=== PATIENT | female | born 1995 | race Caucasian/White ===

== ENCOUNTER 2016-09-29 22:45 | Emergency (ER) | payer MEDICAID ==
[2016-09-29] MEDS ORDERED: ONDANSETRON 4 MG/2 ML VIAL ONE (23:58)
[2016-09-30] MEDS ORDERED: ONDANSETRON 4 MG/2 ML VIAL IVP STA (00:47)
[2016-09-30] MEDS ORDERED: SODIUM CHLORIDE 0.9% 1,000 ML IV ONE (00:47)
== END 2016-09-30 02:10 | disposition home or self-care (01) ==
DX: K52.9 Noninfective gastroenteritis and colitis, unspecified (principal)

== ENCOUNTER 2017-08-16 13:05 | Emergency (ER) | payer MEDICAID ==
--- NOTE | 2017-08-16 13:50 | ED Physician Documentation ---
History of Present Illness - Stated complaint Stated Complaint: SPOTS IN VISION/19 WKS PREG - Chief complaint Chief Complaint: General - History obtained from History obtained from: Patient, Family - History of Present Illness Timing: How many days ago (2) Pain level max: 10 Pain level now: 5 Improved by: nothing Worsened by: nothing - Additonal information Additional information: R sided frontal headache x2 days. States is 20 weeks . . Took tylenol without relief 2 days ago. didn't take anything for pain. Dr. Mckinnon is her OB at [place]. No dyspnea. No vag bleeding. No abd pain. States has had hypertension with this , not on antihypertensives. 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 : None HEENT: None Psych: Anxiety Musculoskeletal: None Derm: None - Past Surgical History Past Surgical History: Yes HEENT: Tonsil/Adenoidectomy - Present Medications Home Medications: Ambulatory Orders Medication Instructions Recorded Confirmed No Known Home Medications [No 08/16/17 08/16/17 Known Home Medications] - Allergies Allergies/Adverse Reactions: Allergies Allergy/AdvReac Type Severity Reaction Status Date / Time clindamycin Allergy Intermediate Edema Verified 09/29/16 22:51 Penicillins Allergy Unknown Cramps Verified 09/29/16 22:51 - Social History Does the pt smoke?: No Smoking Status: Never smoker Does the pt drink ETOH?: No Does the pt have substance abuse?: No - Immunizations Immunizations are current?: Yes - POLST Patient has POLST: No PD ED PE NORMAL - Vitals Vital signs reviewed: Yes - General General: Alert and oriented X 3, No acute distress, Well developed/nourished - HEENT HEENT: Atraumatic, PERRL, EOMI, Ears normal, Moist mucous membranes, Pharynx benign - Neck Neck: Supple, no meningeal sign - Cardiac Cardiac: RRR, Strong equal pulses - Respiratory Respiratory: No respiratory distress, Clear bilaterally - Abdomen Abdomen: Soft, Non tender, Non distended - Back Back: No spinal TTP - Derm Derm: Warm and dry, No rash - Extremities Extremities: No edema, No calf tenderness / cord - Neuro Neuro: Alert and oriented X 3, 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 Normal gait) Eye Opening: Spontaneous Motor: Obeys Commands Verbal: Oriented GCS Score: 15 - Psych Psych: Normal mood, Normal affect Results - Vitals Vitals: Vital Signs - 24 hr 08/16/17 08/16/17 13:08 14:47 Temperature 36.8 C Heart Rate 89 79 Respiratory 18 16 Rate Blood Pressure 128/90 H 104/66 O2 Saturation 100 100 Oxygen O2 Source Room air - Labs Labs: Laboratory Tests 08/16/17 08/16/17 08/16/17 13:48 13:48 14:00 WBC 7.7 RBC 4.21 Hgb 13.2 Hct 37.8 MCV 89.8 MCH 31.2 H MCHC 34.8 RDW 13.3 Plt Count 145 MPV 8.2 Neut # 5.8 Lymph # 1.4 L [place] # 0.4 Eos # 0.1 Baso # 0.0 Absolute Nucleated RBC 0.01 Nucleated RBC % 0.2 Sodium 140 Potassium 3.5 Chloride 109 Carbon Dioxide 23 Anion Gap 8.0 BUN 5 L Creatinine 0.5 Estimated GFR (MDRD) 152 Glucose 85 Calcium 8.9 Total Bilirubin 0.3 AST 20 ALT 19 Alkaline Phosphatase 62 Total Protein 6.3 L Albumin 3.3 Globulin 3.0 Albumin/Globulin Ratio 1.1 Lipase 12 L Urine Color YELLOW Urine Clarity CLEAR Urine pH 8.0 H Ur Specific [place] 1.020 Urine Protein NEGATIVE Urine Glucose (UA) NEGATIVE Urine Ketones NEGATIVE Urine Occult Blood NEGATIVE Urine Nitrite NEGATIVE Urine Bilirubin NEGATIVE Urine Urobilinogen 0.2 (NORMAL) Ur Leukocyte Esterase TRACE H Urine RBC 0-5 Urine WBC 4-5 Ur Squamous Epith Cells MANY Squamous H Amorphous Sediment Moderate Urine Bacteria Moderate H Ur Microscopic Review INDICATED Urine Culture Comments NOT INDICATED Urine HCG, Qual POSITIVE PD MEDICAL DECISION MAKING - ED course Complexity details: reviewed old records (Records from [facility] emergency department as well as her primary care), reviewed results, re- evaluated patient, considered differential, d/w patient ED course: Patient is a 22-year-old female who is currently approximately 19-20 weeks with a headache for the past 3 days. Resolved with Fioricet. Also given IV fluids. Feels better. No acute laboratory findings. Urinalysis appears contaminated. We will have her recollect with her OB. Bedside ultrasound reveals an intrauterine with a heart rate of approximately 142 bpm. Good movement. Images shown to the patient. No evidence of subarachnoid hemorrhage, tumor, mass. GCS 15. Normal neuro exam. Patient counseled regarding signs and symptoms for which I believe and urgent re -evaluation would be necessary. Patient with good understanding of and agreement to plan and is comfortable going home at this time This document was made in part using voice recognition software. While efforts are made to proofread this document, sound alike and grammatical errors may occur. Departure - Departure Disposition: 01 Home, Self Care Clinical Impression: Headache Qualifiers: Headache type: unspecified Headache chronicity pattern: acute headache Intractability: not intractable Qualified Code(s): R51 - Headache Condition: Good Instructions: ED Cephalgia Unspecified Follow-Up: Bogdan Cook MD [Primary Care Provider] - Within 1 week Comments: Drink plenty of fluids and rest. Return if you worsen. Forms: Activity restrictions Discharge Date/Time: 08/16/17 15:14
[2017-08-16 13:51] LABS: BASOPHILS % (AUTO) 0.3 %; EOSINOPHILS # (AUTO) 0.1 10^3/uL (0.0-0.7); HGB - HEMOGLOBIN 13.2 g/dL (12.0-16.0); LYMPHOCYTES # (AUTO) 1.4 10^3/uL (1.5-3.5); LYMPHOCYTES % (AUTO) 17.9 %; MEAN CORPUSCULAR HEMOGLOBIN 31.2 pg (27.0-31.0); MEAN CORPUSCULAR HGB CONC 34.8 g/dL (32.0-36.0); MEAN CORPUSCULAR VOLUME 89.8 fL (81.0-99.0); MEAN PLATELET VOLUME 8.2 fL (7.9-10.8); MONOCYTES # (AUTO) 0.4 10^3/uL (0.0-1.0); MONOCYTES % (AUTO) 4.8 %; NEUTROPHILS # (AUTO) 5.8 10^3/uL (1.5-6.6); PLT - PLATELET COUNT 145 10^3/uL (130-450); RED BLOOD COUNT 4.21 10^6/uL (4.20-5.40); RED CELL DISTRIBUTION WIDTH 13.3 % (12.0-15.0); WHITE BLOOD COUNT 7.7 x10^3/uL (4.8-10.8)
[2017-08-16 14:06] LABS: BILIRUBIN,URINE NEGATIVE (NEGATIVE); GLUCOSE, URINE (UA) NEGATIVE (NEGATIVE); KETONES,URINE (UA) NEGATIVE (NEGATIVE); LEUKOCYTE ESTERASE, URINE TRACE (NEGATIVE); NITRITE,URINE NEGATIVE (NEGATIVE); OCCULT BLOOD,URINE NEGATIVE (NEGATIVE); PROTEIN,URINE NEGATIVE (NEGATIVE); UROBILINOGEN,URINE 0.2 (NORMAL) E.U./dL (NORMAL)
[2017-08-16 14:07] LABS: ALBUMIN 3.3 g/dL (3.2-5.5); ALBUMIN/GLOBULIN RATIO 1.1 (1.0-2.2); BILIRUBIN,TOTAL 0.3 mg/dL (0.2-1.0); CALCIUM 8.9 mg/dL (8.5-10.3); CREATININE 0.5 mg/dL (0.4-1.0); TOTAL PROTEIN 6.3 g/dL (6.7-8.2)
[2017-08-16 14:08] LABS: CLARITY,URINE CLEAR (CLEAR); HCG UR QUAL POSITIVE
[2017-08-16 14:18] LABS: BACTERIA,URINE Moderate /HPF (None Seen); RBC,URINE 0-5 /HPF (0-5); SQUAMOUS EPITHELIAL CELL,UR MANY Squamous (<= Few)
[2017-08-16 14:19] LABS: AMORPHOUS SEDIMENT,UR Moderate /LPF
[2017-08-16] MEDS ORDERED: SODIUM CHLORIDE 0.9% 1,000 ML IV ONE (14:23)
[2017-08-16] MEDS ORDERED: BUTALB/ACETAM/CAFF 50/325/40MG TABLET PO STA (14:25)
[2017-08-16] MEDS ORDERED: METOCLOPRAMIDE 10 MG/2 ML VIAL IVP STA (14:25)
[2017-08-16 14:49] VITALS: BP 104/66
== END 2017-08-16 15:14 | disposition home or self-care (01) ==
LOC: ED 13:05
DX: O26.892 Other specified pregnancy related conditions, second trimester (principal); R51 Headache; Z3A.19 19 weeks gestation of pregnancy
CPT/HCPCS: 36415; 80053; 81001; 81025; 83690; 85025; 96374; 99283; A9270; J2765; 81003; 87086

== ENCOUNTER 2021-01-23 20:17 | Emergency (ER) | payer BC, MEDICAID ==
[2021-01-23 20:31] VITALS: BP 137/90
== END 2021-01-23 22:40 | disposition left against medical advice (07) ==
LOC: ED 20:17
DX: Z53.21 Procedure and treatment not carried out due to patient leaving prior to being seen by health care provider (principal)

== ENCOUNTER 2022-04-19 10:28 | Emergency (ER) | payer MEDICAID ==
[2022-04-19 12:45] LABS: CORONAVIRUS 229E-RESP PCR NOT DETECTED; CORONAVIRUS HKU1-RESP PCR NOT DETECTED; CORONAVIRUS NL63-RESP PCR NOT DETECTED; CORONAVIRUS OC43-RESP PCR NOT DETECTED; HUMAN METAPNEUMOVIRUS NOT DETECTED; INFLUENZA A H3- RESP PCR PANEL DETECTED; INFLUENZA B - RESP PCR PANEL NOT DETECTED; PARAINFLUENZA VIRUS 1 NOT DETECTED; RHINOVIRUS/ENTEROVIRUS NOT DETECTED; SARS-CoV-2 -RESP PCR PANEL NOT DETECTED
[2022-04-19 12:46] LABS: B. PARAPERTUSSIS- RESP PCR PAN NOT DETECTED; B. PERTUSSIS- RESP PCR PANEL NOT DETECTED; C. PNEUMONIAE- RESP PCR PANEL NOT DETECTED; M. PNEUMONIAE- RESP PCR PANEL NOT DETECTED; PARAINFLUENZA VIRUS 2 NOT DETECTED; PARAINFLUENZA VIRUS 3 NOT DETECTED; PARAINFLUENZA VIRUS 4 NOT DETECTED; RSV- RESP PCR PANEL NOT DETECTED
--- NOTE | 2022-04-19 13:14 | ED Physician Documentation ---
PD HPI URI - Stated complaint Stated Complaint: CHILLS, N/V - Chief complaint Chief Complaint: General - History obtained from History obtained from: Patient - History of Present Illness Timing - onset: How many days ago (2) Timing duration: Days (this is third day of illness.) Timing details: Abrupt onset, Still present Associated symptoms: Fever, Chills, Sore throat, Dry cough. No: Dyspnea, NVD Contributing factors: Sick contact. No: Immunocompromised, Unimmunized Similar symptoms before: Has not had sx before Recently seen: Not recently seen Review of Systems Constitutional: reports: Fever, Chills, Myalgias, Fatigue Nose: reports: Rhinorrhea / runny nose, Congestion Throat: reports: Sore throat Cardiac: denies: Chest pain / pressure Respiratory: reports: Cough. denies: Dyspnea GI: reports: Nausea. denies: Vomiting, Diarrhea Skin: denies: Rash Neurologic: reports: Generalized weakness, Headache. 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 : None HEENT: None Psych: Anxiety Musculoskeletal: None Derm: None - Past Surgical History Past Surgical History: Yes HEENT: Tonsil/Adenoidectomy - Present Medications Home Medications: Ambulatory Orders Medication Instructions Recorded Confirmed HYDROcod/ACETAM 5/325 [[facility] 5/325] 1 ea PO Q6H PRN #10 tablet 04/19/22 Ondansetron Odt [Zofran] 4 mg TL Q6H PRN #15 tablet 04/19/22 Oseltamivir [Tamiflu] 75 mg PO BID #10 cap 04/19/22 - Allergies Allergies/Adverse Reactions: Allergies Allergy/AdvReac Type Severity Reaction Status Date / Time clindamycin Allergy Intermediate Edema Verified 04/19/22 11:35 Penicillins Allergy Unknown Cramps Verified 04/19/22 11:35 - Social History Does the pt smoke?: No Smoking Status: Never smoker Does the pt drink ETOH?: Yes Does the pt have substance abuse?: No - Immunizations Immunizations are current?: Yes - POLST Patient has POLST: No PD ED PE NORMAL - Vitals Vital signs reviewed: Yes - General General: Alert and oriented X 3, No acute distress, Well developed/nourished - HEENT HEENT: Ears normal, Pharynx benign - Neck Neck: Supple, no meningeal sign, No adenopathy - Cardiac Cardiac: RRR, No murmur - Respiratory Respiratory: Clear bilaterally - Abdomen Abdomen: Soft, Non tender - Derm Derm: Normal color, Warm and dry, No rash - Neuro Neuro: Alert and oriented X 3, No motor deficit, Normal speech Results - Vitals Vitals: Oxygen O2 Source Room air - Labs Labs: Laboratory Tests 04/19/22 04/19/22 11:29 11:29 Nasal Adenovirus (PCR) NOT DETECTED Nasal B. parapertussis DNA (PCR) NOT DETECTED Nasal Coronavir 229E PCR NOT DETECTED Nasal Coronavir HKU1 PCR NOT DETECTED Nasal Coronavir NL63 PCR NOT DETECTED Nasal Coronavir OC43 PCR NOT DETECTED Nasal Enterovir/Rhinovir PCR NOT DETECTED Nasal Influenza A H3 PCR DETECTED A Nasal Influenza B PCR NOT DETECTED Nasal Parainfluen 1 PCR NOT DETECTED Nasal Parainfluen 2 PCR NOT DETECTED Nasal Parainfluen 3 PCR NOT DETECTED Nasal Parainfluen 4 PCR NOT DETECTED Nasal RSV (PCR) NOT DETECTED Nasal B.pertussis DNA PCR NOT DETECTED Nasal C.pneumoniae (PCR) NOT DETECTED Devin Human Metapneumo PCR NOT DETECTED Nasal M.pneumoniae (PCR) NOT DETECTED Nasal SARS-CoV-2 (PCR) NOT DETECTED Influenza A (Rapid) Negative Influenza B (Rapid) Negative PD MEDICAL DECISION MAKING - ED course Complexity details: reviewed results, considered differential (sounds like the flu. ), d/w patient Departure - Departure Disposition: 01 Home, Self Care Clinical Impression: Influenza A Headache Qualifiers: Headache type: unspecified Headache chronicity pattern: acute headache Intractability: not intractable Qualified Code(s): R51.9 - Headache, unspecified Nausea and vomiting Qualifiers: Vomiting type: unspecified Qualified Code(s): R11.2 - Nausea with vomiting, unspecified Condition: Stable Record reviewed to determine appropriate education?: Yes Instructions: ED Flu Follow-Up: Bogdan Cook MD [Primary Care Provider] - Prescriptions: HYDROcod/ACETAM 5/325 [[facility] 5/325] 1 ea PO Q6H PRN #10 tablet PRN Reason: Pain Oseltamivir [Tamiflu] 75 mg PO BID #10 cap Ondansetron Odt [Zofran] 4 mg TL Q6H PRN #15 tablet PRN Reason: Nausea / Vomiting Comments: Your viral panel PCR test was positive for influenza A. This goes along with your symptoms quite well. For your nausea, you can use ondansetron every 4-6 hours if needed. You may have some mild improvement with oseltamivir/Tamiflu that you would like to try. That is given twice daily for 5 days. Be fairly regular with Tylenol 500 to 650 mg 4 times daily for fevers and pains. For your headache in particular, you can add hydrocodone every 6 hours if needed for worse pain. I presume you will need off work another 3 days or so. I sent your prescriptions to [facility] pharmacy in [place]. I am prescribing a short course of narcotic pain medication for you. These are potentially dangerous and addictive medications that should be used carefully. These medications may constipate you. Take an [id number] stool softener such as docusate twice daily with plenty of water while taking these medications. If you go 24 hours without a bowel movement, take [id number] MiraLAX, per package instructions. Do not drink or drive while taking these medications. If you received narcotic or sedating medications while in the emergency department do not drive for 24 hours. Store this medication in a safe, secure place and out of reach of children. It is a violation of federal law to give or sell this medication to another person or to use in a manner other than prescribed. The ED will not refill narcotic prescriptions, including prescriptions lost or stolen. You can dispose of unwanted medications at the [facility]'s office or at several pharmacies such as [facility]. Forms: Activity restrictions Discharge Date/Time: 04/19/22 14:47
[2022-04-19] MEDS ORDERED: ONDANSETRON ODT 4 MG TABLET TL STA (13:49)
[2022-04-19] MEDS ORDERED: KETOROLAC 30 MG/ML VIAL IM STA (13:49)
[2022-04-19] MEDS ORDERED: DEXAMETHASONE 10 MG/ML VIAL PO STA (13:50)
[2022-04-19] MEDS ORDERED: CHERRY SYRUP 10 ML UDC PO ONE (13:50)
[2022-04-19 14:48] VITALS: BP 126/78
== END 2022-04-19 14:47 | disposition home or self-care (01) ==
LOC: ED 10:28
DX: J10.1 Influenza due to other identified influenza virus with other respiratory manifestations (principal)
CPT/HCPCS: 87275; 87276; 87633; 96374; 99283; A9270; Q0162

== ENCOUNTER 2022-11-21 17:35 | Outpatient (CLI) | payer MEDICAID | END 2022-11-21 23:59 | disposition critical access hospital (66) | LOC: EMS 17:35 | DX: R55 Syncope and collapse (principal); R19.7 Diarrhea, unspecified | CPT/HCPCS: A0425; A0427; A0999 ==

== ENCOUNTER 2022-11-21 17:55 | Emergency (ER) | payer MEDICAID ==
[2022-11-21 18:31] LABS: BASOPHILS % (AUTO) 0.6 %; EOSINOPHILS # (AUTO) 0.2 10^3/uL (0.0-0.7); EOSINOPHILS % (AUTO) 2.3 %; HCT - HEMATOCRIT 37.2 % (37.0-47.0); HGB - HEMOGLOBIN 12.6 g/dL (12.0-16.0); LYMPHOCYTES # (AUTO) 1.6 10^3/uL (1.5-3.5); LYMPHOCYTES % (AUTO) 25.1 %; MEAN CORPUSCULAR HEMOGLOBIN 30.5 pg (27.0-31.0); MEAN CORPUSCULAR HGB CONC 33.9 g/dL (32.0-36.0); MEAN CORPUSCULAR VOLUME 90.1 fL (81.0-99.0); MEAN PLATELET VOLUME 10.6 fL (7.9-10.8); MONOCYTES # (AUTO) 0.3 10^3/uL (0.0-1.0); MONOCYTES % (AUTO) 4.9 %; NEUTROPHILS # (AUTO) 4.4 10^3/uL (1.5-6.6); NEUTROPHILS % (AUTO) 66.8 %; PLT - PLATELET COUNT 154 10^3/uL (130-450); RED BLOOD COUNT 4.13 10^6/uL (4.20-5.40); RED CELL DISTRIBUTION WIDTH 12.2 % (12.0-15.0); WHITE BLOOD COUNT 6.5 x10^3/uL (4.8-10.8)
--- NOTE | 2022-11-21 18:53 | ED Physician Documentation ---
PD HPI SYNCOPE - Stated complaint Stated Complaint: NEAR SYNCOPE - Chief complaint Chief Complaint: Neuro - History obtained from History obtained from: Patient - Additional information Additional information: 27-year-old woman with history of vasovagal syncope was having cramping during the bowel movement and then nearly passed out and laid on the floor. There is no associated chest pain or trouble breathing. Then she had actually had a full syncopal episode on the way here while having her IV placed. She said that part is not uncommon for her but the syncope during the bowel movement is not typical. She feels fine now. There was no injury. 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 : None HEENT: None Psych: Anxiety Musculoskeletal: None Derm: None - Past Surgical History Past Surgical History: Yes HEENT: Tonsil/Adenoidectomy - Present Medications Home Medications: Ambulatory Orders Medication Instructions Recorded Confirmed HYDROcod/ACETAM 5/325 [[place] 5/325] 1 ea PO Q6H PRN #10 tablet 04/19/22 Ondansetron Odt [Zofran] 4 mg TL Q6H PRN #15 tablet 04/19/22 Oseltamivir [Tamiflu] 75 mg PO BID #10 cap 04/19/22 - Allergies Allergies/Adverse Reactions: Allergies Allergy/AdvReac Type Severity Reaction Status Date / Time clindamycin Allergy Intermediate Edema Verified 04/19/22 11:35 Penicillins Allergy Unknown Cramps Verified 04/19/22 11:35 - Social History Does the pt smoke?: No Smoking Status: Never smoker Does the pt drink ETOH?: Yes Does the pt have substance abuse?: No - Immunizations Immunizations are current?: Yes - POLST Patient has POLST: No PD ED PE NORMAL - Vitals Vital signs reviewed: Yes - General General: Alert and oriented X 3, No acute distress - HEENT HEENT: PERRL, EOMI - Neck Neck: Supple, no meningeal sign, No bony TTP - Cardiac Cardiac: RRR, No murmur - Respiratory Respiratory: No respiratory distress, Clear bilaterally - Abdomen Abdomen: Non tender - Back Back: No CVA TTP, No spinal TTP - Derm Derm: Normal color, Warm and dry - Extremities Extremities: No edema, No calf tenderness / cord - Neuro Neuro: Alert and oriented X 3, Normal speech Eye Opening: Spontaneous Motor: Obeys Commands Verbal: Oriented GCS Score: 15 - Psych Psych: Normal mood, Normal affect Results - Vitals Vitals: Vital Signs - 24 hr 11/21/22 11/21/22 18:03 19:40 Temperature 36.9 C 36.8 C Heart Rate 68 67 Respiratory 18 16 Rate Blood Pressure 101/66 95/67 O2 Saturation 98 100 Oxygen O2 Source Room air - EKG (time done) 1842 EKG releavant findings:: EKG personally interpreted by author of this note. Relevant findings are: Rate: Rate (enter#) (65) Rhythm: NSR [place]: Normal Intervals: Normal [place] QRS: Normal Ischemia: Normal ST segments Computer interpretation: Agree with computer - Labs Labs: Laboratory Tests 11/21/22 11/21/22 11/21/22 18:15 18:35 18:52 WBC 6.5 RBC 4.13 L Hgb 12.6 Hct 37.2 MCV 90.1 MCH 30.5 MCHC 33.9 RDW 12.2 Plt Count 154 MPV 10.6 Neut # (Auto) 4.4 Lymph # (Auto) 1.6 [place] # (Auto) 0.3 Eos # (Auto) 0.2 Baso # (Auto) 0.0 Absolute Nucleated RBC 0.00 Nucleated RBC % 0.0 Sodium Potassium Chloride Carbon Dioxide Anion Gap BUN Creatinine Estimated GFR (MDRD) Glucose POC Whole Bld Glucose 98 Calcium Urine Color DARK YELLOW Urine Clarity CLEAR Urine pH 8.5 H Ur Specific [place] 1.020 Urine Protein 30 H Urine Glucose (UA) NEGATIVE Urine Ketones NEGATIVE Urine Occult Blood NEGATIVE Urine Nitrite NEGATIVE Urine Bilirubin NEGATIVE Urine Urobilinogen 2 H Ur Leukocyte Esterase NEGATIVE Urine RBC 0-5 Urine WBC 0-3 Ur Squamous Epith Cells MANY Squamous H Urine Bacteria Rare Urine Mucus Marked Strands Ur Microscopic Review INDICATED Urine Culture Comments NOT INDICATED Urine HCG, Qual NEGATIVE 11/21/22 19:15 WBC RBC Hgb Hct MCV MCH MCHC RDW Plt Count MPV Neut # (Auto) Lymph # (Auto) [place] # (Auto) Eos # (Auto) Baso # (Auto) Absolute Nucleated RBC Nucleated RBC % Sodium 139 Potassium 3.5 Chloride 106 Carbon Dioxide 26 Anion Gap 7.0 BUN 11 Creatinine 0.7 Estimated GFR (MDRD) 99 Glucose 110 H POC Whole Bld Glucose Calcium 8.5 Urine Color Urine Clarity Urine pH Ur Specific [place] Urine Protein Urine Glucose (UA) Urine Ketones Urine Occult Blood Urine Nitrite Urine Bilirubin Urine Urobilinogen Ur Leukocyte Esterase Urine RBC Urine WBC Ur Squamous Epith Cells Urine Bacteria Urine Mucus Ur Microscopic Review Urine Culture Comments Urine HCG, Qual PD Medical Decision Making - ED course ED course: 27-year-old woman with syncope while having a near syncope while having a bowel movement. Now asymptomatic with normal exam, normal EKG, normal CBC, BMP, and UA. Negative test. Asymptomatic here. Departure - Departure Disposition: 01 Home, Self Care Clinical Impression: Pre-syncope Condition: Good Instructions: ED Near Syncope Vasovagal Comments: No serious cause of passing out/near passing out was identified today. Call your doctor to arrange a follow-up appointment, make the next available appointment. In the interim, return anytime if worse or if new symptoms develop. Discharge Date/Time: 11/21/22 19:45
--- OUTSIDE RECORDS SUMMARY | 2022-11-21 18:53 | EXTERNAL MEDICAL SUMMARY RPT | Continuity of Care Document ---
Author Name Unknown Address [address] [place] [address] Phone Organization [facility] Address [address] [place] [address] Phone Care Team Providers Care Asset Protection Officer Name Role Phone Bogdan Cook Unavailable Unavailable Medications date description facility 2022-09-16 00:[address] [facility] 2022-09-16 00:[address] [facility] Problems date description facility 2022-11-10 14:18 Pel[address] pain [facility] Results/Labs test date author facility value unit interpretation Result panel 1 (unknown) (no date) (unknown) (unknown) (no value) (units unknown) (unknown) (unknown) (no date) (unknown) (unknown) 09/16/22 (units unknown) (unknown) (unknown) (no date) (unknown) (unknown) 41 weeks gesta tion of (units unknown) (unknown) (unknown) (no date) (unknown) (unknown) 7 (units unknown) (unknown) (unknown) (no date) (unknown) (unknown) Accompanied by : Self / Same As Patient (units unknown) (unknown) (unknown) (no date) (unknown) (unknown) Acne (2015) (units unknown) (unknown) (unknown) (no date) (unknown) (unknown) Age/Sex: 27 / F Date of Service: (units unknown) (unknown) (unknown) (no date) (unknown) (unknown) Allergies (units unknown) (unknown) (unknown) (no date) (unknown) (unknown) [facility] (units unknown) (unknown) (unknown) (no date) (unknown) (unknown) [place] [address] (units unknown) (unknown) (unknown) (no date) (unknown) (unknown) Anesthesia (units unknown) (unknown) (unknown) (no date) (unknown) (unknown) Anxiety (2013) (unit s unknown) (unknown) (unknown) (no date) (unknown) (unknown) Attending Dr: Amanda Painter P.A-C (units unknown) (unknown) (unknown) (no date) (unknown) (unknown) Cancer (units unknown) (unknown) (unknown) (no date) (unknown) (unknown) Constipation (units unknown) (unknown) (unknown) (no date) (unknown) (unknown) : 3 Acct:[id number] (units unknown) (unknown) (unknown) (no date) (unknown) (unknown) Date of Last M enstrual Period: 08/28/22 (units unknown) (unknown) (unknown) (no date) (unknown) (unknown) Dept at . (units unknown) (unknown) (unknown) (no date) (unknown) (unknown) Documented By: Amanda Painter P.A-C 09/16/22 144 (units unknown) (unknown) (unknown) (no date) (unknown) (unknown) Draft (units unknown) (unknown) (unknown) (no date) (unknown) (unknown) Eczema (-1996) (unit s unknown) (unknown) (unknown) (no date) (unknown) (unknown) FACIAL SWELLING (uni ts unknown) (unknown) (unknown) (no date) (unknown) (unknown) Facial swelling (uni ts unknown) (unknown) (unknown) (no date) (unknown) (unknown) Family History (units unknown) (unknown) (unknown) (no date) (unknown) (unknown) Family Practic e Office Visit (units unknown) (unknown) (unknown) (no date) (unknown) (unknown) Father Age: 50 Hypertension (units unknown) (unknown) (unknown) (no date) (unknown) (unknown) Grandfather Ag e: 80 Diabetes mellitus (units unknown) (unknown) (unknown) (no date) (unknown) (unknown) Grandfather No problems noted. (units unknown) (unknown) (unknown) (no date) (unknown) (unknown) Grandmother Ag e: 76 Bladder cancer (units unknown) (unknown) (unknown) (no date) (unknown) (unknown) Grandmother Ag e: 78 Diabetes mellitus (units unknown) (unknown) (unknown) (no date) (unknown) (unknown) Health Managem ent reviewed with patient: No (units unknown) (unknown) (unknown) (no date) (unknown) (unknown) Health Management (u nits unknown) (unknown) (unknown) (no date) (unknown) (unknown) High cholesterol (un its unknown) (unknown) (unknown) (no date) (unknown) (unknown) History of tonsillectomy (2002) (units unknown) (unknown) (unknown) (no date) (unknown) (unknown) Hypertension (units unknown) (unknown) (unknown) (no date) (unknown) (unknown) Intake perform ed by: Amanda Painter (units unknown) (unknown) (unknown) (no date) (unknown) (unknown) Intake (units unknown) (unknown) (unknown) (no date) (unknown) (unknown) Intake- Clincial Sta ff (units unknown) (unknown) (unknown) (no date) (unknown) (unknown) Is last menstr ual period known: Yes (units unknown) (unknown) (unknown) (no date) (unknown) (unknown) Last Menstural Cycle + Details (units unknown) (unknown) (unknown) (no date) (unknown) (unknown) Loc: [facility] (units unknown) (unknown) (unknown) (no date) (unknown) (unknown) MR#: [id number] (uni ts unknown) (unknown) (unknown) (no date) (unknown) (unknown) Medical Histor y (units unknown) (unknown) (unknown) (no date) (unknown) (unknown) Mental health proble m (units unknown) (unknown) (unknown) (no date) (unknown) (unknown) Migraines (2016) (un its unknown) (unknown) (unknown) (no date) (unknown) (unknown) Mother Age: 50 Diabetes mellitus (units unknown) (unknown) (unknown) (no date) (unknown) (unknown) PCOS (polycyst ic ovarian syndrome) (units unknown) (unknown) (unknown) (no date) (unknown) (unknown) PFSH (units unknown) (unknown) (unknown) (no date) (unknown) (unknown) Painful menstr ual periods (2016) (units unknown) (unknown) (unknown) (no date) (unknown) (unknown) Patient: Ophelia Horne (units unknown) (unknown) (unknown) (no date) (unknown) (unknown) Penicillins [PENICILLINS] Allergy (Unknown, Verified 05/13/22 12:40) (units unknown) (unknown) (unknown) (no date) (unknown) (unknown) Psoriasis (-1996) (u nits unknown) (unknown) (unknown) (no date) (unknown) (unknown) Reason For Visit (un its unknown) (unknown) (unknown) (no date) (unknown) (unknown) Signed By: (units unknown) (unknown) (unknown) (no date) (unknown) (unknown) Skin nodule (units unknown) (unknown) (unknown) (no date) (unknown) (unknown) Skin tag (units unknown) (unknown) (unknown) (no date) (unknown) (unknown) Smoking Status : Current every day smoker (units unknown) (unknown) (unknown) (no date) (unknown) (unknown) Social History (unit s unknown) (unknown) (unknown) (no date) (unknown) (unknown) Stroke (units unknown) (unknown) (unknown) (no date) (unknown) (unknown) Surgical Histo ry (units unknown) (unknown) (unknown) (no date) (unknown) (unknown) This note may have been all or partially generated using voice recognition (units unknown) (unknown) (unknown) (no date) (unknown) (unknown) Tobacco + Subs tance Use (units unknown) (unknown) (unknown) (no date) (unknown) (unknown) Tobacco Status (unit s unknown) (unknown) (unknown) (no date) (unknown) (unknown) Vaginal delivery (un its unknown) (unknown) (unknown) (no date) (unknown) (unknown) Visit Reasons: skin tag on top of head 04 (units unknown) (unknown) (unknown) (no date) (unknown) (unknown) alcohol intake : current (units unknown) (unknown) (unknown) (no date) (unknown) (unknown) clindamycin [CLINDAMYCIN] Allergy (Unknown, Verified 05/13/22 12:40) (units unknown) (unknown) (unknown) (no date) (unknown) (unknown) have occurred. If there are any questions, please contact the Medical Records (units unknown) (unknown) (unknown) (no date) (unknown) (unknown) marital status : unmarried,single (units unknown) (unknown) (unknown) (no date) (unknown) (unknown) may occur. Occ asional wrong-word or 'sound-alike' substitutions may have (units unknown) (unknown) (unknown) (no date) (unknown) (unknown) occurred due t o the inherent limitations of voice recognition software. Please (units unknown) (unknown) (unknown) (no date) (unknown) (unknown) read the note carefully and recognize, using context, where these substitutions (units unknown) (unknown) (unknown) (no date) (unknown) (unknown) software. 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 (units unknown) (unknown) (unknown) (no date) (unknown) (unknown) substance use type: does not use (units unknown) (unknown) Result panel 2 (unknown) (no date) (unknown) (unknown) (no value) (units unknown) (unknown) (unknown) (no date) (unknown) (unknown) 09/16/22 (units unknown) (unknown) (unknown) (no date) (unknown) (unknown) 09/16/22] (units unknown) (unknown) (unknown) (no date) (unknown) (unknown) 41 weeks gesta tion of (units unknown) (unknown) (unknown) (no date) (unknown) (unknown) 7 (units unknown) (unknown) (unknown) (no date) (unknown) (unknown) Accompanied by : Self / Same As Patient (units unknown) (unknown) (unknown) (no date) (unknown) (unknown) Acne (2015) (units unknown) (unknown) (unknown) (no date) (unknown) (unknown) Age/Sex: 27 / F Date of Service: (units unknown) (unknown) (unknown) (no date) (unknown) (unknown) Allergies (units unknown) (unknown) (unknown) (no date) (unknown) (unknown) [place] [facility] (units unknown) (unknown) (unknown) (no date) (unknown) (unknown) [place] [id number] (units unknown) (unknown) (unknown) (no date) (unknown) (unknown) Anesthesia (units unknown) (unknown) (unknown) (no date) (unknown) (unknown) Anxiety (2014) (unit s unknown) (unknown) (unknown) (no date) (unknown) (unknown) Assessment + Plan (u nits unknown) (unknown) (unknown) (no date) (unknown) (unknown) Attending Dr: Amanda Painter P.A-C (units unknown) (unknown) (unknown) (no date) (unknown) (unknown) Cancer (units unknown) (unknown) (unknown) (no date) (unknown) (unknown) Chief Complaint (uni ts unknown) (unknown) (unknown) (no date) (unknown) (unknown) Chief Complain t: Check bump on head (units unknown) (unknown) (unknown) (no date) (unknown) (unknown) Constipation (units unknown) (unknown) (unknown) (no date) (unknown) (unknown) : 3 Acct:[id number] (units unknown) (unknown) (unknown) (no date) (unknown) (unknown) Date of Last M enstrual Period: 08/28/22 (units unknown) (unknown) (unknown) (no date) (unknown) (unknown) Dept at [phone]. (units unknown) (unknown) (unknown) (no date) (unknown) (unknown) Documented By: Amanda Painter P.A-C 09/16/22 144 (units unknown) (unknown) (unknown) (no date) (unknown) (unknown) Draft (units unknown) (unknown) (unknown) (no date) (unknown) (unknown) Eczema (-1996) (unit s unknown) (unknown) (unknown) (no date) (unknown) (unknown) FACIAL SWELLING (uni ts unknown) (unknown) (unknown) (no date) (unknown) (unknown) Facial swelling (uni ts unknown) (unknown) (unknown) (no date) (unknown) (unknown) Family History (units unknown) (unknown) (unknown) (no date) (unknown) (unknown) Family Practic e Office Visit (units unknown) (unknown) (unknown) (no date) (unknown) (unknown) Father Age: 50 Hypertension (units unknown) (unknown) (unknown) (no date) (unknown) (unknown) Grandfather Ag e: 80 Diabetes mellitus (units unknown) (unknown) (unknown) (no date) (unknown) (unknown) Grandfather No problems noted. (units unknown) (unknown) (unknown) (no date) (unknown) (unknown) Grandmother Ag e: 76 Bladder cancer (units unknown) (unknown) (unknown) (no date) (unknown) (unknown) Grandmother Ag e: 78 Diabetes mellitus (units unknown) (unknown) (unknown) (no date) (unknown) (unknown) HPI (units unknown) (unknown) (unknown) (no date) (unknown) (unknown) Health Managem ent reviewed with patient: No (units unknown) (unknown) (unknown) (no date) (unknown) (unknown) Health Management (u nits unknown) (unknown) (unknown) (no date) (unknown) (unknown) High cholesterol (un its unknown) (unknown) (unknown) (no date) (unknown) (unknown) History of tonsillectomy (2002) (units unknown) (unknown) (unknown) (no date) (unknown) (unknown) Hypertension (units unknown) (unknown) (unknown) (no date) (unknown) (unknown) Intake perform ed by: Amanda Painter (units unknown) (unknown) (unknown) (no date) (unknown) (unknown) Intake (units unknown) (unknown) (unknown) (no date) (unknown) (unknown) Intake- Clincial Sta ff (units unknown) (unknown) (unknown) (no date) (unknown) (unknown) Is last menstr ual period known: Yes (units unknown) (unknown) (unknown) (no date) (unknown) (unknown) Last Menstural Cycle + Details (units unknown) (unknown) (unknown) (no date) (unknown) (unknown) Loc: [facility] (units unknown) (unknown) (unknown) (no date) (unknown) (unknown) MR#: [id number] (uni ts unknown) (unknown) (unknown) (no date) (unknown) (unknown) Medical Histor y (units unknown) (unknown) (unknown) (no date) (unknown) (unknown) Medications (units unknown) (unknown) (unknown) (no date) (unknown) (unknown) Medications: (units unknown) (unknown) (unknown) (no date) (unknown) (unknown) Mental health proble m (units unknown) (unknown) (unknown) (no date) (unknown) (unknown) Migraines (2016) (un its unknown) (unknown) (unknown) (no date) (unknown) (unknown) Mother Age: 50 Diabetes mellitus (units unknown) (unknown) (unknown) (no date) (unknown) (unknown) PCOS (polycyst ic ovarian syndrome) (units unknown) (unknown) (unknown) (no date) (unknown) (unknown) PFSH (units unknown) (unknown) (unknown) (no date) (unknown) (unknown) Painful menstr ual periods (2015) (units unknown) (unknown) (unknown) (no date) (unknown) (unknown) Patient: Heladio tapia Ophelia George (units unknown) (unknown) (unknown) (no date) (unknown) (unknown) Penicillins [PENICILLINS] Allergy (Unknown, Verified 05/13/22 12:40) (units unknown) (unknown) (unknown) (no date) (unknown) (unknown) Psoriasis (-1996) (u nits unknown) (unknown) (unknown) (no date) (unknown) (unknown) Reason For Visit (un its unknown) (unknown) (unknown) (no date) (unknown) (unknown) Refilled (units unknown) (unknown) (unknown) (no date) (unknown) (unknown) Signed By: (units unknown) (unknown) (unknown) (no date) (unknown) (unknown) Skin nodule (units unknown) (unknown) (unknown) (no date) (unknown) (unknown) Skin tag (units unknown) (unknown) (unknown) (no date) (unknown) (unknown) Smoking Status : Current every day smoker (units unknown) (unknown) (unknown) (no date) (unknown) (unknown) Social History (unit s unknown) (unknown) (unknown) (no date) (unknown) (unknown) Stroke (units unknown) (unknown) (unknown) (no date) (unknown) (unknown) Surgical Histo ry (units unknown) (unknown) (unknown) (no date) (unknown) (unknown) This note may have been all or partially generated using voice recognition (units unknown) (unknown) (unknown) (no date) (unknown) (unknown) Tobacco + Subs tance Use (units unknown) (unknown) (unknown) (no date) (unknown) (unknown) Tobacco Status (unit s unknown) (unknown) (unknown) (no date) (unknown) (unknown) Vaginal delivery (un its unknown) (unknown) (unknown) (no date) (unknown) (unknown) Visit Reasons: skin tag on top of head 04 (units unknown) (unknown) (unknown) (no date) (unknown) (unknown) alcohol intake : current (units unknown) (unknown) (unknown) (no date) (unknown) (unknown) clindamycin [CLINDAMYCIN] Allergy (Unknown, Verified 05/13/22 12:40) (units unknown) (unknown) (unknown) (no date) (unknown) (unknown) have occurred. If there are any questions, please contact the Medical Records (units unknown) (unknown) (unknown) (no date) (unknown) (unknown) marital status : unmarried,single (units unknown) (unknown) (unknown) (no date) (unknown) (unknown) may occur. Occ asional wrong-word or 'sound-alike' substitutions may have (units unknown) (unknown) (unknown) (no date) (unknown) (unknown) occurred due t o the inherent limitations of voice recognition software. Please (units unknown) (unknown) (unknown) (no date) (unknown) (unknown) read the note carefully and recognize, using context, where these substitutions (units unknown) (unknown) (unknown) (no date) (unknown) (unknown) sertraline (Zo loft) 50 mg PO DAILY 90 tabs 3RF (units unknown) (unknown) (unknown) (no date) (unknown) (unknown) sertraline 50 mg tablet (Zoloft) 50 mg PO DAILY #90 tabs 09/16/22 [Rx Confirmed (units unknown) (unknown) (unknown) (no date) (unknown) (unknown) software. 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 (units unknown) (unknown) (unknown) (no date) (unknown) (unknown) spironolactone 25 mg PO DAILY 90 tabs 1RF L68.0 - Hirsutism, L70.9 - Acne, (units unknown) (unknown) (unknown) (no date) (unknown) (unknown) spironolactone 25 mg tablet 25 mg PO DAILY #90 tabs 09/16/22 [Rx Confirmed (units unknown) (unknown) (unknown) (no date) (unknown) (unknown) substance use type: does not use (units unknown) (unknown) (unknown) (no date) (unknown) (unknown) unspecified (units unknown) (unknown) Result panel 3 (unknown) (no date) (unknown) (unknown) (no value) (units unknown) (unknown) (unknown) (no date) (unknown) (unknown) (1) Nevus: (units unknown) (unknown) (unknown) (no date) (unknown) (unknown) 09/16/22 (units unknown) (unknown) (unknown) (no date) (unknown) (unknown) 09/16/22] (units unknown) (unknown) (unknown) (no date) (unknown) (unknown) 41 weeks gesta tion of (units unknown) (unknown) (unknown) (no date) (unknown) (unknown) 7 (units unknown) (unknown) (unknown) (no date) (unknown) (unknown) Accompanied by : Self / Same As Patient (units unknown) (unknown) (unknown) (no date) (unknown) (unknown) Acne (2015) (units unknown) (unknown) (unknown) (no date) (unknown) (unknown) Age/Sex: 27 / F Date of Service: (units unknown) (unknown) (unknown) (no date) (unknown) (unknown) Allergies (units unknown) (unknown) (unknown) (no date) (unknown) (unknown) [place] [facility] (units unknown) (unknown) (unknown) (no date) (unknown) (unknown) [place] [id number] (units unknown) (unknown) (unknown) (no date) (unknown) (unknown) Anesthesia (units unknown) (unknown) (unknown) (no date) (unknown) (unknown) Anxiety (2013) (unit s unknown) (unknown) (unknown) (no date) (unknown) (unknown) Assessment + Plan (u nits unknown) (unknown) (unknown) (no date) (unknown) (unknown) Attending Dr: Amanda Painter P.A-C (units unknown) (unknown) (unknown) (no date) (unknown) (unknown) Cancer (units unknown) (unknown) (unknown) (no date) (unknown) (unknown) Chief Complaint (uni ts unknown) (unknown) (unknown) (no date) (unknown) (unknown) Chief Complain t: Check bump on head (units unknown) (unknown) (unknown) (no date) (unknown) (unknown) Constipation (units unknown) (unknown) (unknown) (no date) (unknown) (unknown) : 3 Acct:[id number] (units unknown) (unknown) (unknown) (no date) (unknown) (unknown) Date of Last M enstrual Period: 08/28/22 (units unknown) (unknown) (unknown) (no date) (unknown) (unknown) Dept at [phone]. (units unknown) (unknown) (unknown) (no date) (unknown) (unknown) Documented By: Amanda Painter P.A-C 09/16/22 144 (units unknown) (unknown) (unknown) (no date) (unknown) (unknown) Draft (units unknown) (unknown) (unknown) (no date) (unknown) (unknown) Eczema (-1996) (unit s unknown) (unknown) (unknown) (no date) (unknown) (unknown) FACIAL SWELLING (uni ts unknown) (unknown) (unknown) (no date) (unknown) (unknown) Facial swelling (uni ts unknown) (unknown) (unknown) (no date) (unknown) (unknown) Family History (units unknown) (unknown) (unknown) (no date) (unknown) (unknown) Family Practic e Office Visit (units unknown) (unknown) (unknown) (no date) (unknown) (unknown) Father Age: 50 Hypertension (units unknown) (unknown) (unknown) (no date) (unknown) (unknown) Grandfather Ag e: 80 Diabetes mellitus (units unknown) (unknown) (unknown) (no date) (unknown) (unknown) Grandfather No problems noted. (units unknown) (unknown) (unknown) (no date) (unknown) (unknown) Grandmother Ag e: 76 Bladder cancer (units unknown) (unknown) (unknown) (no date) (unknown) (unknown) Grandmother Ag e: 78 Diabetes mellitus (units unknown) (unknown) (unknown) (no date) (unknown) (unknown) HPI (units unknown) (unknown) (unknown) (no date) (unknown) (unknown) Health Managem ent reviewed with patient: No (units unknown) (unknown) (unknown) (no date) (unknown) (unknown) Health Management (u nits unknown) (unknown) (unknown) (no date) (unknown) (unknown) High cholesterol (un its unknown) (unknown) (unknown) (no date) (unknown) (unknown) History of tonsillectomy (2002) (units unknown) (unknown) (unknown) (no date) (unknown) (unknown) Hypertension (units unknown) (unknown) (unknown) (no date) (unknown) (unknown) Intake perform ed by: Amanda Painter (units unknown) (unknown) (unknown) (no date) (unknown) (unknown) Intake (units unknown) (unknown) (unknown) (no date) (unknown) (unknown) Intake- Clincial Sta ff (units unknown) (unknown) (unknown) (no date) (unknown) (unknown) Is last menstr ual period known: Yes (units unknown) (unknown) (unknown) (no date) (unknown) (unknown) Last Menstural Cycle + Details (units unknown) (unknown) (unknown) (no date) (unknown) (unknown) Loc: [facility] (units unknown) (unknown) (unknown) (no date) (unknown) (unknown) MR#: [id number] (uni ts unknown) (unknown) (unknown) (no date) (unknown) (unknown) Medical Histor y (units unknown) (unknown) (unknown) (no date) (unknown) (unknown) Medications (units unknown) (unknown) (unknown) (no date) (unknown) (unknown) Medications: (units unknown) (unknown) (unknown) (no date) (unknown) (unknown) Mental health proble m (units unknown) (unknown) (unknown) (no date) (unknown) (unknown) Migraines (2016) (un its unknown) (unknown) (unknown) (no date) (unknown) (unknown) Mother Age: 50 Diabetes mellitus (units unknown) (unknown) (unknown) (no date) (unknown) (unknown) Orders (units unknown) (unknown) (unknown) (no date) (unknown) (unknown) Orders: (units unknown) (unknown) (unknown) (no date) (unknown) (unknown) PCOS (polycyst ic ovarian syndrome) (units unknown) (unknown) (unknown) (no date) (unknown) (unknown) PFSH (units unknown) (unknown) (unknown) (no date) (unknown) (unknown) Painful menstr ual periods (2015) (units unknown) (unknown) (unknown) (no date) (unknown) (unknown) Pathology [facility] Today D22.9 - Melanocytic nevi, unspecified (units unknown) (unknown) (unknown) (no date) (unknown) (unknown) Patient: Ophelia Horne (units unknown) (unknown) (unknown) (no date) (unknown) (unknown) Penicillins [PENICILLINS] Allergy (Unknown, Verified 05/13/22 12:40) (units unknown) (unknown) (unknown) (no date) (unknown) (unknown) Psoriasis (-1996) (u nits unknown) (unknown) (unknown) (no date) (unknown) (unknown) Reason For Visit (un its unknown) (unknown) (unknown) (no date) (unknown) (unknown) Refilled (units unknown) (unknown) (unknown) (no date) (unknown) (unknown) Signed By: (units unknown) (unknown) (unknown) (no date) (unknown) (unknown) Skin nodule (units unknown) (unknown) (unknown) (no date) (unknown) (unknown) Skin tag (units unknown) (unknown) (unknown) (no date) (unknown) (unknown) Smoking Status : Current every day smoker (units unknown) (unknown) (unknown) (no date) (unknown) (unknown) Social History (unit s unknown) (unknown) (unknown) (no date) (unknown) (unknown) Stroke (units unknown) (unknown) (unknown) (no date) (unknown) (unknown) Surgical Histo ry (units unknown) (unknown) (unknown) (no date) (unknown) (unknown) This note may have been all or partially generated using voice recognition (units unknown) (unknown) (unknown) (no date) (unknown) (unknown) Tobacco + Subs tance Use (units unknown) (unknown) (unknown) (no date) (unknown) (unknown) Tobacco Status (unit s unknown) (unknown) (unknown) (no date) (unknown) (unknown) Vaginal delivery (un its unknown) (unknown) (unknown) (no date) (unknown) (unknown) Visit Reasons: skin tag on top of head 04 (units unknown) (unknown) (unknown) (no date) (unknown) (unknown) alcohol intake : current (units unknown) (unknown) (unknown) (no date) (unknown) (unknown) clindamycin [CLINDAMYCIN] Allergy (Unknown, Verified 05/13/22 12:40) (units unknown) (unknown) (unknown) (no date) (unknown) (unknown) have occurred. If there are any questions, please contact the Medical Records (units unknown) (unknown) (unknown) (no date) (unknown) (unknown) marital status : unmarried,single (units unknown) (unknown) (unknown) (no date) (unknown) (unknown) may occur. Occ asional wrong-word or 'sound-alike' substitutions may have (units unknown) (unknown) (unknown) (no date) (unknown) (unknown) occurred due t o the inherent limitations of voice recognition software. Please (units unknown) (unknown) (unknown) (no date) (unknown) (unknown) read the note carefully and recognize, using context, where these substitutions (units unknown) (unknown) (unknown) (no date) (unknown) (unknown) sertraline (Zo loft) 50 mg PO DAILY 90 tabs 3RF (units unknown) (unknown) (unknown) (no date) (unknown) (unknown) sertraline 50 mg tablet (Zoloft) 50 mg PO DAILY #90 tabs 09/16/22 [Rx Confirmed (units unknown) (unknown) (unknown) (no date) (unknown) (unknown) software. 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 (units unknown) (unknown) (unknown) (no date) (unknown) (unknown) spironolactone 25 mg PO DAILY 90 tabs 1RF L68.0 - Hirsutism, L70.9 - Acne, (units unknown) (unknown) (unknown) (no date) (unknown) (unknown) spironolactone 25 mg tablet 25 mg PO DAILY #90 tabs 09/16/22 [Rx Confirmed (units unknown) (unknown) (unknown) (no date) (unknown) (unknown) substance use type: does not use (units unknown) (unknown) (unknown) (no date) (unknown) (unknown) unspecified (units unknown) (unknown) Result panel 4 (unknown) (no date) (unknown) (unknown) (no value) (units unknown) (unknown) (unknown) (no date) (unknown) (unknown) (1) Nevus: (units unknown) (unknown) (unknown) (no date) (unknown) (unknown) 09/16/22 (units unknown) (unknown) (unknown) (no date) (unknown) (unknown) 09/16/22] (units unknown) (unknown) (unknown) (no date) (unknown) (unknown) 15:35 (units unknown) (unknown) (unknown) (no date) (unknown) (unknown) 41 weeks gesta tion of (units unknown) (unknown) (unknown) (no date) (unknown) (unknown) 7 (units unknown) (unknown) (unknown) (no date) (unknown) (unknown) Accompanied by : Self / Same As Patient (units unknown) (unknown) (unknown) (no date) (unknown) (unknown) Acne (2014) (units unknown) (unknown) (unknown) (no date) (unknown) (unknown) Age/Sex: 27 / F Date of Service: (units unknown) (unknown) (unknown) (no date) (unknown) (unknown) Allergies (units unknown) (unknown) (unknown) (no date) (unknown) (unknown) [facility] (units unknown) (unknown) (unknown) (no date) (unknown) (unknown) [place] [address] (units unknown) (unknown) (unknown) (no date) (unknown) (unknown) Anesthesia (units unknown) (unknown) (unknown) (no date) (unknown) (unknown) Anxiety (2013) (unit s unknown) (unknown) (unknown) (no date) (unknown) (unknown) Assessment + Plan (u nits unknown) (unknown) (unknown) (no date) (unknown) (unknown) Attending Dr: Amanda Painter P.A-C (units unknown) (unknown) (unknown) (no date) (unknown) (unknown) BP 108/70 (units unknown) (unknown) (unknown) (no date) (unknown) (unknown) Blood Pressure Location Lt brachial (units unknown) (unknown) (unknown) (no date) (unknown) (unknown) Cancer (units unknown) (unknown) (unknown) (no date) (unknown) (unknown) Chief Complaint (uni ts unknown) (unknown) (unknown) (no date) (unknown) (unknown) Chief Complain t: Check bump on head (units unknown) (unknown) (unknown) (no date) (unknown) (unknown) Constipation (units unknown) (unknown) (unknown) (no date) (unknown) (unknown) : 3 Acct:[id number] (units unknown) (unknown) (unknown) (no date) (unknown) (unknown) Date of Last M enstrual Period: 08/28/22 (units unknown) (unknown) (unknown) (no date) (unknown) (unknown) Dept at . (units unknown) (unknown) (unknown) (no date) (unknown) (unknown) Details: (units unknown) (unknown) (unknown) (no date) (unknown) (unknown) Documented By: Amanda Painter P.A-C 09/16/22 144 (units unknown) (unknown) (unknown) (no date) (unknown) (unknown) Draft (units unknown) (unknown) (unknown) (no date) (unknown) (unknown) Eczema (-1996) (unit s unknown) (unknown) (unknown) (no date) (unknown) (unknown) FACIAL SWELLING (uni ts unknown) (unknown) (unknown) (no date) (unknown) (unknown) Facial swelling (uni ts unknown) (unknown) (unknown) (no date) (unknown) (unknown) Family History (units unknown) (unknown) (unknown) (no date) (unknown) (unknown) Family Practic e Office Visit (units unknown) (unknown) (unknown) (no date) (unknown) (unknown) Father Age: 50 Hypertension (units unknown) (unknown) (unknown) (no date) (unknown) (unknown) Grandfather Ag e: 80 Diabetes mellitus (units unknown) (unknown) (unknown) (no date) (unknown) (unknown) Grandfather No problems noted. (units unknown) (unknown) (unknown) (no date) (unknown) (unknown) Grandmother Ag e: 76 Bladder cancer (units unknown) (unknown) (unknown) (no date) (unknown) (unknown) Grandmother Ag e: 78 Diabetes mellitus (units unknown) (unknown) (unknown) (no date) (unknown) (unknown) HPI (units unknown) (unknown) (unknown) (no date) (unknown) (unknown) Has bump in sc alp on top of head. Red, raised. Gets in the (units unknown) (unknown) (unknown) (no date) (unknown) (unknown) Health Managem ent reviewed with patient: No (units unknown) (unknown) (unknown) (no date) (unknown) (unknown) Health Management (u nits unknown) (unknown) (unknown) (no date) (unknown) (unknown) High cholesterol (un its unknown) (unknown) (unknown) (no date) (unknown) (unknown) History of tonsillectomy (2003) (units unknown) (unknown) (unknown) (no date) (unknown) (unknown) Hypertension (units unknown) (unknown) (unknown) (no date) (unknown) (unknown) Intake perform ed by: Amanda Painter (units unknown) (unknown) (unknown) (no date) (unknown) (unknown) Intake (units unknown) (unknown) (unknown) (no date) (unknown) (unknown) Intake- Clincial Sta ff (units unknown) (unknown) (unknown) (no date) (unknown) (unknown) Is last menstr ual period known: Yes (units unknown) (unknown) (unknown) (no date) (unknown) (unknown) Last Menstural Cycle + Details (units unknown) (unknown) (unknown) (no date) (unknown) (unknown) Loc: [facility] (units unknown) (unknown) (unknown) (no date) (unknown) (unknown) MR#: [id number] (uni ts unknown) (unknown) (unknown) (no date) (unknown) (unknown) Medical Histor y (units unknown) (unknown) (unknown) (no date) (unknown) (unknown) Medications (units unknown) (unknown) (unknown) (no date) (unknown) (unknown) Medications: (units unknown) (unknown) (unknown) (no date) (unknown) (unknown) Mental health proble m (units unknown) (unknown) (unknown) (no date) (unknown) (unknown) Migraines (2016) (un its unknown) (unknown) (unknown) (no date) (unknown) (unknown) Mother Age: 50 Diabetes mellitus (units unknown) (unknown) (unknown) (no date) (unknown) (unknown) Orders (units unknown) (unknown) (unknown) (no date) (unknown) (unknown) Orders: (units unknown) (unknown) (unknown) (no date) (unknown) (unknown) Oxygen Deliver y Method room air (units unknown) (unknown) (unknown) (no date) (unknown) (unknown) PCOS (polycyst ic ovarian syndrome) (units unknown) (unknown) (unknown) (no date) (unknown) (unknown) PCP: Dr. 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, unspecified (units unknown) (unknown) (unknown) (no date) (unknown) (unknown) Patient: Heladio Ophelia Juan (units unknown) (unknown) (unknown) (no date) (unknown) (unknown) Penicillins [PENICILLINS] Allergy (Unknown, Verified 05/13/22 12:40) (units unknown) (unknown) (unknown) (no date) (unknown) (unknown) Position Sitting (un its unknown) (unknown) (unknown) (no date) (unknown) (unknown) Psoriasis (-1996) (u nits unknown) (unknown) (unknown) (no date) (unknown) (unknown) Pulse 74 (units unknown) (unknown) (unknown) (no date) (unknown) (unknown) Pulse Oximetry (%) 9 9 (units unknown) (unknown) (unknown) (no date) (unknown) (unknown) Pulse Source Monitor (units unknown) (unknown) (unknown) (no date) (unknown) (unknown) Reason For Visit (un its unknown) (unknown) (unknown) (no date) (unknown) (unknown) Refilled (units unknown) (unknown) (unknown) (no date) (unknown) (unknown) Signed By: (units unknown) (unknown) (unknown) (no date) (unknown) (unknown) Skin nodule (units unknown) (unknown) (unknown) (no date) (unknown) (unknown) Skin tag (units unknown) (unknown) (unknown) (no date) (unknown) (unknown) Smoking Status : Current every day smoker (units unknown) (unknown) (unknown) (no date) (unknown) (unknown) Social History (unit s unknown) (unknown) (unknown) (no date) (unknown) (unknown) Stroke (units unknown) (unknown) (unknown) (no date) (unknown) (unknown) Surgical Histo ry (units unknown) (unknown) (unknown) (no date) (unknown) (unknown) Temp 97.6 F (units unknown) (unknown) (unknown) (no date) (unknown) (unknown) This note may have been all or partially generated using voice recognition (units unknown) (unknown) (unknown) (no date) (unknown) (unknown) Tobacco + Subs tance Use (units unknown) (unknown) (unknown) (no date) (unknown) (unknown) Tobacco Status (unit s unknown) (unknown) (unknown) (no date) (unknown) (unknown) Vaginal delivery (un its unknown) (unknown) (unknown) (no date) (unknown) (unknown) Visit Reasons: skin tag on top of head 04 (units unknown) (unknown) (unknown) (no date) (unknown) (unknown) Vitals (units unknown) (unknown) (unknown) (no date) (unknown) (unknown) Weight 159 lb 8 oz ( units unknown) (unknown) (unknown) (no date) (unknown) (unknown) alcohol intake : current (units unknown) (unknown) (unknown) (no date) (unknown) (unknown) at age 10. See ms to have gotten larger. Desires to have (units unknown) (unknown) (unknown) (no date) (unknown) (unknown) clindamycin [CLINDAMYCIN] Allergy (Unknown, Verified 05/13/22 12:40) (units unknown) (unknown) (unknown) (no date) (unknown) (unknown) have occurred. If there are any questions, please contact the Medical Records (units unknown) (unknown) (unknown) (no date) (unknown) (unknown) it removed. (units unknown) (unknown) (unknown) (no date) (unknown) (unknown) marital status : unmarried,single (units unknown) (unknown) (unknown) (no date) (unknown) (unknown) may occur. Occ asional wrong-word or 'sound-alike' substitutions may have (units unknown) (unknown) (unknown) (no date) (unknown) (unknown) occurred due t o the inherent limitations of voice recognition software. Please (units unknown) (unknown) (unknown) (no date) (unknown) (unknown) read the note carefully and recognize, using context, where these substitutions (units unknown) (unknown) (unknown) (no date) (unknown) (unknown) sertraline (Zo loft) 50 mg PO DAILY 90 tabs 3RF (units unknown) (unknown) (unknown) (no date) (unknown) (unknown) sertraline 50 mg tablet (Zoloft) 50 mg PO DAILY #90 tabs 09/16/22 [Rx Confirmed (units unknown) (unknown) (unknown) (no date) (unknown) (unknown) software. 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 First noticed it (units unknown) (unknown) Result panel 5 (unknown) (no date) (unknown) (unknown) (no value) (units unknown) (unknown) (unknown) (no date) (unknown) (unknown) (1) Nevus: (units unknown) (unknown) (unknown) (no date) (unknown) (unknown) 09/16/22 (units unknown) (unknown) (unknown) (no date) (unknown) (unknown) 09/16/22] (units unknown) (unknown) (unknown) (no date) (unknown) (unknown) 15:35 (units unknown) (unknown) (unknown) (no date) (unknown) (unknown) 41 weeks gesta tion of (units unknown) (unknown) (unknown) (no date) (unknown) (unknown) 7 (units unknown) (unknown) (unknown) (no date) (unknown) (unknown) Accompanied by : Self / Same As Patient (units unknown) (unknown) (unknown) (no date) (unknown) (unknown) Acne (2014) (units unknown) (unknown) (unknown) (no date) (unknown) (unknown) Age/Sex: 27 / F Date of Service: (units unknown) (unknown) (unknown) (no date) (unknown) (unknown) Allergies (units unknown) (unknown) (unknown) (no date) (unknown) (unknown) [place] [facility] (units unknown) (unknown) (unknown) (no date) (unknown) (unknown) [place] [address] (units unknown) (unknown) (unknown) (no date) (unknown) (unknown) Anesthesia (units unknown) (unknown) (unknown) (no date) (unknown) (unknown) Anxiety (2013) (unit s unknown) (unknown) (unknown) (no date) (unknown) (unknown) Appearance: gr ossly normal (units unknown) (unknown) (unknown) (no date) (unknown) (unknown) Assessment + Plan (u nits unknown) (unknown) (unknown) (no date) (unknown) (unknown) Attending Dr: Amanda Painter P.A-C (units unknown) (unknown) (unknown) (no date) (unknown) (unknown) BP 108/70 (units unknown) (unknown) (unknown) (no date) (unknown) (unknown) Blood Pressure Location Lt brachial (units unknown) (unknown) (unknown) (no date) (unknown) (unknown) Cancer (units unknown) (unknown) (unknown) (no date) (unknown) (unknown) Chief Complaint (uni ts unknown) (unknown) (unknown) (no date) (unknown) (unknown) Chief Complain t: Check bump on head (units unknown) (unknown) (unknown) (no date) (unknown) (unknown) Const (units unknown) (unknown) (unknown) (no date) (unknown) (unknown) Constipation (units unknown) (unknown) (unknown) (no date) (unknown) (unknown) : 3 Acct:[id number] (units unknown) (unknown) (unknown) (no date) (unknown) (unknown) Date of Last M enstrual Period: 08/28/22 (units unknown) (unknown) (unknown) (no date) (unknown) (unknown) Dept at [phone]. (units unknown) (unknown) (unknown) (no date) (unknown) (unknown) Details: (units unknown) (unknown) (unknown) (no date) (unknown) (unknown) Documented By: Amanda Painter P.A-C 09/16/22 144 (units unknown) (unknown) (unknown) (no date) (unknown) (unknown) Draft (units unknown) (unknown) (unknown) (no date) (unknown) (unknown) Ears: hearing grossly normal bilaterally (units unknown) (unknown) (unknown) (no date) (unknown) (unknown) Eczema (-1996) (unit s unknown) (unknown) (unknown) (no date) (unknown) (unknown) Effort + Inspe ction: normal respiratory effort and able to speak in complete (units unknown) (unknown) (unknown) (no date) (unknown) (unknown) Exam (units unknown) (unknown) (unknown) (no date) (unknown) (unknown) FACIAL SWELLING (uni ts unknown) (unknown) (unknown) (no date) (unknown) (unknown) Facial swelling (uni ts unknown) (unknown) (unknown) (no date) (unknown) (unknown) Family History (units unknown) (unknown) (unknown) (no date) (unknown) (unknown) Family Practic e Office Visit (units unknown) (unknown) (unknown) (no date) (unknown) (unknown) Father Age: 50 Hypertension (units unknown) (unknown) (unknown) (no date) (unknown) (unknown) General: healt hy appearing, comfortable and no acute distress (units unknown) (unknown) (unknown) (no date) (unknown) (unknown) General: patie nt oriented x3 and gait normal (units unknown) (unknown) (unknown) (no date) (unknown) (unknown) Grandfather Ag e: 80 Diabetes mellitus (units unknown) (unknown) (unknown) (no date) (unknown) (unknown) Grandfather No problems noted. (units unknown) (unknown) (unknown) (no date) (unknown) (unknown) Grandmother Ag e: 76 Bladder cancer (units unknown) (unknown) (unknown) (no date) (unknown) (unknown) Grandmother Ag e: 78 Diabetes mellitus (units unknown) (unknown) (unknown) (no date) (unknown) (unknown) HENMT (units unknown) (unknown) (unknown) (no date) (unknown) (unknown) HPI (units unknown) (unknown) (unknown) (no date) (unknown) (unknown) Has bump in sc alp on top of head. Red, raised. Gets in the (units unknown) (unknown) (unknown) (no date) (unknown) (unknown) Health Managem ent reviewed with patient: No (units unknown) (unknown) (unknown) (no date) (unknown) (unknown) Health Management (u nits unknown) (unknown) (unknown) (no date) (unknown) (unknown) High cholesterol (un its unknown) (unknown) (unknown) (no date) (unknown) (unknown) History of tonsillectomy (2002) (units unknown) (unknown) (unknown) (no date) (unknown) (unknown) Hypertension (units unknown) (unknown) (unknown) (no date) (unknown) (unknown) Intake perform ed by: Amanda Painter (units unknown) (unknown) (unknown) (no date) (unknown) (unknown) Intake (units unknown) (unknown) (unknown) (no date) (unknown) (unknown) Intake- Clincial Sta ff (units unknown) (unknown) (unknown) (no date) (unknown) (unknown) Is last menstr ual period known: Yes (units unknown) (unknown) (unknown) (no date) (unknown) (unknown) Last Menstural Cycle + Details (units unknown) (unknown) (unknown) (no date) (unknown) (unknown) Loc: [facility] (units unknown) (unknown) (unknown) (no date) (unknown) (unknown) MR#: [id number] (uni ts unknown) (unknown) (unknown) (no date) (unknown) (unknown) Medical Histor y (units unknown) (unknown) (unknown) (no date) (unknown) (unknown) Medications (units unknown) (unknown) (unknown) (no date) (unknown) (unknown) Medications: (units unknown) (unknown) (unknown) (no date) (unknown) (unknown) Mental Status: mental status grossly normal (units unknown) (unknown) (unknown) (no date) (unknown) (unknown) Mental health proble m (units unknown) (unknown) (unknown) (no date) (unknown) (unknown) Migraines (2016) (un its unknown) (unknown) (unknown) (no date) (unknown) (unknown) Mother Age: 50 Diabetes mellitus (units unknown) (unknown) (unknown) (no date) (unknown) (unknown) Neuro (units unknown) (unknown) (unknown) (no date) (unknown) (unknown) Nutritional Appearance: other (elevated BMI) (units unknown) (unknown) (unknown) (no date) (unknown) (unknown) Orders (units unknown) (unknown) (unknown) (no date) (unknown) (unknown) Orders: (units unknown) (unknown) (unknown) (no date) (unknown) (unknown) Orientation: o riented x3 (units unknown) (unknown) (unknown) (no date) (unknown) (unknown) Other: (units unknown) (unknown) (unknown) (no date) (unknown) (unknown) Oxygen Deliver y Method room air (units unknown) (unknown) (unknown) (no date) (unknown) (unknown) PCOS (polycyst ic ovarian syndrome) (units unknown) (unknown) (unknown) (no date) (unknown) (unknown) PCP: Dr. 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, unspecified (units unknown) (unknown) (unknown) (no date) (unknown) (unknown) Patient: Ophelia Horne (units unknown) (unknown) (unknown) (no date) (unknown) (unknown) Penicillins [PENICILLINS] Allergy (Unknown, Verified 05/13/22 12:40) (units unknown) (unknown) (unknown) (no date) (unknown) (unknown) Position Sitting (un its unknown) (unknown) (unknown) (no date) (unknown) (unknown) Psoriasis (-1996) (u nits unknown) (unknown) (unknown) (no date) (unknown) (unknown) Psych (units unknown) (unknown) (unknown) (no date) (unknown) (unknown) Pulse 74 (units unknown) (unknown) (unknown) (no date) (unknown) (unknown) Pulse Oximetry (%) 9 9 (units unknown) (unknown) (unknown) (no date) (unknown) (unknown) Pulse Source Monitor (units unknown) (unknown) (unknown) (no date) (unknown) (unknown) Reason For Visit (un its unknown) (unknown) (unknown) (no date) (unknown) (unknown) Refilled (units unknown) (unknown) (unknown) (no date) (unknown) (unknown) Resp (units unknown) (unknown) (unknown) (no date) (unknown) (unknown) Scalp - top of head firm, inflamed appearing mass (units unknown) (unknown) (unknown) (no date) (unknown) (unknown) Signed By: (units unknown) (unknown) (unknown) (no date) (unknown) (unknown) Skin nodule (units unknown) (unknown) (unknown) (no date) (unknown) (unknown) Skin tag (units unknown) (unknown) (unknown) (no date) (unknown) (unknown) Skin (units unknown) (unknown) (unknown) (no date) (unknown) (unknown) Smoking Status : Current every day smoker (units unknown) (unknown) (unknown) (no date) (unknown) (unknown) Social History (unit s unknown) (unknown) (unknown) (no date) (unknown) (unknown) Speech and Mov ement: speech and movement normal (units unknown) (unknown) (unknown) (no date) (unknown) (unknown) Stroke (units unknown) (unknown) (unknown) (no date) (unknown) (unknown) Surgical Histo ry (units unknown) (unknown) (unknown) (no date) (unknown) (unknown) Temp 97.6 F (units unknown) (unknown) (unknown) (no date) (unknown) (unknown) This note may have been all or partially generated using voice recognition (units unknown) (unknown) (unknown) (no date) (unknown) (unknown) Tobacco + Subs tance Use (units unknown) (unknown) (unknown) (no date) (unknown) (unknown) Tobacco Status (unit s unknown) (unknown) (unknown) (no date) (unknown) (unknown) Vaginal delivery (un its unknown) (unknown) (unknown) (no date) (unknown) (unknown) Visit Reasons: skin tag on top of head 04 (units unknown) (unknown) (unknown) (no date) (unknown) (unknown) Vitals (units unknown) (unknown) (unknown) (no date) (unknown) (unknown) Weight 159 lb 8 oz ( units unknown) (unknown) (unknown) (no date) (unknown) (unknown) alcohol intake : current (units unknown) (unknown) (unknown) (no date) (unknown) (unknown) at age 10. See ms to have gotten larger. Desires to have (units unknown) (unknown) (unknown) (no date) (unknown) (unknown) clindamycin [CLINDAMYCIN] Allergy (Unknown, Verified 05/13/22 12:40) (units unknown) (unknown) (unknown) (no date) (unknown) (unknown) have occurred. If there are any questions, please contact the Medical Records (units unknown) (unknown) (unknown) (no date) (unknown) (unknown) it removed. (units unknown) (unknown) (unknown) (no date) (unknown) (unknown) marital status : unmarried,single (units unknown) (unknown) (unknown) (no date) (unknown) (unknown) may occur. Occ asional wrong-word or 'sound-alike' substitutions may have (units unknown) (unknown) (unknown) (no date) (unknown) (unknown) nevus vs skin tag (u nits unknown) (unknown) (unknown) (no date) (unknown) (unknown) occurred due t o the inherent limitations of voice recognition software. Please (units unknown) (unknown) (unknown) (no date) (unknown) (unknown) read the note carefully and recognize, using context, where these substitutions (units unknown) (unknown) (unknown) (no date) (unknown) (unknown) sentences (units unknown) (unknown) (unknown) (no date) (unknown) (unknown) sertraline (Zo loft) 50 mg PO DAILY 90 tabs 3RF (units unknown) (unknown) (unknown) (no date) (unknown) (unknown) sertraline 50 mg tablet (Zoloft) 50 mg PO DAILY #90 tabs 09/16/22 [Rx Confirmed (units unknown) (unknown) (unknown) (no date) (unknown) (unknown) software. 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 First noticed it (units unknown) (unknown) Result panel 6 (unknown) (no date) (unknown) (unknown) (no value) (units unknown) (unknown) (unknown) (no date) (unknown) (unknown) (1) Nevus: (units unknown) (unknown) (unknown) (no date) (unknown) (unknown) -Follow up prn (unit s unknown) (unknown) (unknown) (no date) (unknown) (unknown) -Meds refilled (unit s unknown) (unknown) (unknown) (no date) (unknown) (unknown) -Will notify p atient of path results when available and of any further (units unknown) (unknown) (unknown) (no date) (unknown) (unknown) 09/16/22 1549 (units unknown) (unknown) (unknown) (no date) (unknown) (unknown) 09/16/22 (units unknown) (unknown) (unknown) (no date) (unknown) (unknown) 09/16/22] (units unknown) (unknown) (unknown) (no date) (unknown) (unknown) 15:35 (units unknown) (unknown) (unknown) (no date) (unknown) (unknown) 3-4mm lesion o n scalp removed using pick ups and #15 blade (units unknown) (unknown) (unknown) (no date) (unknown) (unknown) 41 weeks gesta tion of (units unknown) (unknown) (unknown) (no date) (unknown) (unknown) 7 (units unknown) (unknown) (unknown) (no date) (unknown) (unknown) Accompanied by : Self / Same As Patient (units unknown) (unknown) (unknown) (no date) (unknown) (unknown) Acne (2014) (units unknown) (unknown) (unknown) (no date) (unknown) (unknown) Age/Sex: 27 / F Date of Service: (units unknown) (unknown) (unknown) (no date) (unknown) (unknown) Allergies (units unknown) (unknown) (unknown) (no date) (unknown) (unknown) [facility] Medicine (units unknown) (unknown) (unknown) (no date) (unknown) (unknown) [place] [address] (units unknown) (unknown) (unknown) (no date) (unknown) (unknown) Anesthesia (units unknown) (unknown) (unknown) (no date) (unknown) (unknown) Anesthesia: ot her (2% Xylocaine with epi) (units unknown) (unknown) (unknown) (no date) (unknown) (unknown) Anxiety (2013) (unit s unknown) (unknown) (unknown) (no date) (unknown) (unknown) Appearance: gr ossly normal (units unknown) (unknown) (unknown) (no date) (unknown) (unknown) Assessment + Plan (u nits unknown) (unknown) (unknown) (no date) (unknown) (unknown) Attending Dr: Amanda Painter P.A-C (units unknown) (unknown) (unknown) (no date) (unknown) (unknown) BP 108/70 (units unknown) (unknown) (unknown) (no date) (unknown) (unknown) Billing (units unknown) (unknown) (unknown) (no date) (unknown) (unknown) Blood Pressure Location Lt brachial (units unknown) (unknown) (unknown) (no date) (unknown) (unknown) Cancer (units unknown) (unknown) (unknown) (no date) (unknown) (unknown) Chief Complaint (uni ts unknown) (unknown) (unknown) (no date) (unknown) (unknown) Chief Complain t: Check bump on head (units unknown) (unknown) (unknown) (no date) (unknown) (unknown) Complications: No (u nits unknown) (unknown) (unknown) (no date) (unknown) (unknown) Consent signed: Yes (units unknown) (unknown) (unknown) (no date) (unknown) (unknown) Const (units unknown) (unknown) (unknown) (no date) (unknown) (unknown) Constipation (units unknown) (unknown) (unknown) (no date) (unknown) (unknown) : 3 Acct:[id number] (units unknown) (unknown) (unknown) (no date) (unknown) (unknown) Date of Last M enstrual Period: 08/28/22 (units unknown) (unknown) (unknown) (no date) (unknown) (unknown) Dept at [phone]. (units unknown) (unknown) (unknown) (no date) (unknown) (unknown) Details: (units unknown) (unknown) (unknown) (no date) (unknown) (unknown) Documented By: Amanda Painter P.A-C 09/16/22 144 (units unknown) (unknown) (unknown) (no date) (unknown) (unknown) Drysol used fo r hemostasis Sent for biopsy (units unknown) (unknown) (unknown) (no date) (unknown) (unknown) Ears: hearing grossly normal bilaterally (units unknown) (unknown) (unknown) (no date) (unknown) (unknown) Eczema (-1996) (unit s unknown) (unknown) (unknown) (no date) (unknown) (unknown) Effort + Inspe ction: normal respiratory effort and able to speak in complete (units unknown) (unknown) (unknown) (no date) (unknown) (unknown) Exam (units unknown) (unknown) (unknown) (no date) (unknown) (unknown) FACIAL SWELLING (uni ts unknown) (unknown) (unknown) (no date) (unknown) (unknown) Face, Ear, Eye , Nose: Less than 0.5cm- [id number] (units unknown) (unknown) (unknown) (no date) (unknown) (unknown) Facial swelling (uni ts unknown) (unknown) (unknown) (no date) (unknown) (unknown) Family History (units unknown) (unknown) (unknown) (no date) (unknown) (unknown) Family Practic e Office Visit (units unknown) (unknown) (unknown) (no date) (unknown) (unknown) Father Age: 50 Hypertension (units unknown) (unknown) (unknown) (no date) (unknown) (unknown) General: healt hy appearing, comfortable and no acute distress (units unknown) (unknown) (unknown) (no date) (unknown) (unknown) General: patie nt oriented x3 and gait normal (units unknown) (unknown) (unknown) (no date) (unknown) (unknown) Grandfather Ag e: 80 Diabetes mellitus (units unknown) (unknown) (unknown) (no date) (unknown) (unknown) Grandfather No problems noted. (units unknown) (unknown) (unknown) (no date) (unknown) (unknown) Grandmother Ag e: 76 Bladder cancer (units unknown) (unknown) (unknown) (no date) (unknown) (unknown) Grandmother Ag e: 78 Diabetes mellitus (units unknown) (unknown) (unknown) (no date) (unknown) (unknown) HENMT (units unknown) (unknown) (unknown) (no date) (unknown) (unknown) HPI (units unknown) (unknown) (unknown) (no date) (unknown) (unknown) Has bump in sc alp on top of head. Red, raised. Gets in the (units unknown) (unknown) (unknown) (no date) (unknown) (unknown) Health Managem ent reviewed with patient: No (units unknown) (unknown) (unknown) (no date) (unknown) (unknown) Health Management (u nits unknown) (unknown) (unknown) (no date) (unknown) (unknown) Hemostasis: drysol ( units unknown) (unknown) (unknown) (no date) (unknown) (unknown) High cholesterol (un its unknown) (unknown) (unknown) (no date) (unknown) (unknown) History of tonsillectomy (2002) (units unknown) (unknown) (unknown) (no date) (unknown) (unknown) Hypertension (units unknown) (unknown) (unknown) (no date) (unknown) (unknown) Informed conse nt given: Yes (units unknown) (unknown) (unknown) (no date) (unknown) (unknown) Intake perform ed by: Amanda Painter (units unknown) (unknown) (unknown) (no date) (unknown) (unknown) Intake (units unknown) (unknown) (unknown) (no date) (unknown) (unknown) Intake- Clincial Sta ff (units unknown) (unknown) (unknown) (no date) (unknown) (unknown) Is last menstr ual period known: Yes (units unknown) (unknown) (unknown) (no date) (unknown) (unknown) Last Menstural Cycle + Details (units unknown) (unknown) (unknown) (no date) (unknown) (unknown) Loc: [facility] (units unknown) (unknown) (unknown) (no date) (unknown) (unknown) MR#: [id number] (uni ts unknown) (unknown) (unknown) (no date) (unknown) (unknown) Medical Histor y (units unknown) (unknown) (unknown) (no date) (unknown) (unknown) Medications (units unknown) (unknown) (unknown) (no date) (unknown) (unknown) Medications: (units unknown) (unknown) (unknown) (no date) (unknown) (unknown) Mental Status: mental status grossly normal (units unknown) (unknown) (unknown) (no date) (unknown) (unknown) Mental health proble m (units unknown) (unknown) (unknown) (no date) (unknown) (unknown) Migraines (2016) (un its unknown) (unknown) (unknown) (no date) (unknown) (unknown) Mother Age: 50 Diabetes mellitus (units unknown) (unknown) (unknown) (no date) (unknown) (unknown) Neuro (units unknown) (unknown) (unknown) (no date) (unknown) (unknown) Nutritional Appearance: other (elevated BMI) (units unknown) (unknown) (unknown) (no date) (unknown) (unknown) Office Procedures (u nits unknown) (unknown) (unknown) (no date) (unknown) (unknown) Orders (units unknown) (unknown) (unknown) (no date) (unknown) (unknown) Orders: (units unknown) (unknown) (unknown) (no date) (unknown) (unknown) Orientation: o riented x3 (units unknown) (unknown) (unknown) (no date) (unknown) (unknown) Other: (units unknown) (unknown) (unknown) (no date) (unknown) (unknown) Oxygen Deliver y Method room air (units unknown) (unknown) (unknown) (no date) (unknown) (unknown) PCOS (polycyst ic ovarian syndrome) (units unknown) (unknown) (unknown) (no date) (unknown) (unknown) PCP: Dr. 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, unspecified (units unknown) (unknown) (unknown) (no date) (unknown) (unknown) Patient felt s omewhat dizzy after sitting up. Had her lie back down (units unknown) (unknown) (unknown) (no date) (unknown) (unknown) Patient tolera edmundo procedure: well (units unknown) (unknown) (unknown) (no date) (unknown) (unknown) Patient: Ophelia Horne (units unknown) (unknown) (unknown) (no date) (unknown) (unknown) Penicillins [PENICILLINS] Allergy (Unknown, Verified 05/13/22 12:40) (units unknown) (unknown) (unknown) (no date) (unknown) (unknown) Plan (units unknown) (unknown) (unknown) (no date) (unknown) (unknown) Position Sitting (un its unknown) (unknown) (unknown) (no date) (unknown) (unknown) Preparation: chlorhexidine (units unknown) (unknown) (unknown) (no date) (unknown) (unknown) Procedure perf ormed by: Amanda Painter (units unknown) (unknown) (unknown) (no date) (unknown) (unknown) Psoriasis (-1996) (u nits unknown) (unknown) (unknown) (no date) (unknown) (unknown) Psych (units unknown) (unknown) (unknown) (no date) (unknown) (unknown) Pulse 74 (units unknown) (unknown) (unknown) (no date) (unknown) (unknown) Pulse Oximetry (%) 9 9 (units unknown) (unknown) (unknown) (no date) (unknown) (unknown) Pulse Source Monitor (units unknown) (unknown) (unknown) (no date) (unknown) (unknown) Reason For Visit (un its unknown) (unknown) (unknown) (no date) (unknown) (unknown) Refilled (units unknown) (unknown) (unknown) (no date) (unknown) (unknown) Resp (units unknown) (unknown) (unknown) (no date) (unknown) (unknown) Saucerization: #15 blade (units unknown) (unknown) (unknown) (no date) (unknown) (unknown) Scalp - top of head firm, inflamed appearing mass (units unknown) (unknown) (unknown) (no date) (unknown) (unknown) Shave Biopsy/E xcision Notes: (units unknown) (unknown) (unknown) (no date) (unknown) (unknown) Signed By: <Electronically signed by Amanda Painter> (units unknown) (unknown) (unknown) (no date) (unknown) (unknown) Signed (units unknown) (unknown) (unknown) (no date) (unknown) (unknown) Skin nodule (units unknown) (unknown) (unknown) (no date) (unknown) (unknown) Skin tag (units unknown) (unknown) (unknown) (no date) (unknown) (unknown) Skin (units unknown) (unknown) (unknown) (no date) (unknown) (unknown) Smoking Status : Current every day smoker (units unknown) (unknown) (unknown) (no date) (unknown) (unknown) Social History (unit s unknown) (unknown) (unknown) (no date) (unknown) (unknown) Speech and Mov ement: speech and movement normal (units unknown) (unknown) (unknown) (no date) (unknown) (unknown) Stroke (units unknown) (unknown) (unknown) (no date) (unknown) (unknown) Surgical Histo ry (units unknown) (unknown) (unknown) (no date) (unknown) (unknown) Temp 97.6 F (units unknown) (unknown) (unknown) (no date) (unknown) (unknown) This note may have been all or partially generated using voice recognition (units unknown) (unknown) (unknown) (no date) (unknown) (unknown) Tobacco + Subs tance Use (units unknown) (unknown) (unknown) (no date) (unknown) (unknown) Tobacco Status (unit s unknown) (unknown) (unknown) (no date) (unknown) (unknown) Vaginal delivery (un its unknown) (unknown) (unknown) (no date) (unknown) (unknown) Visit Reasons: skin tag on top of head 04 (units unknown) (unknown) (unknown) (no date) (unknown) (unknown) Vitals (units unknown) (unknown) (unknown) (no date) (unknown) (unknown) Weight 159 lb 8 oz ( units unknown) (unknown) (unknown) (no date) (unknown) (unknown) alcohol intake : current (units unknown) (unknown) (unknown) (no date) (unknown) (unknown) at age 10. See ms to have gotten larger. Desires to have (units unknown) (unknown) (unknown) (no date) (unknown) (unknown) clindamycin [CLINDAMYCIN] Allergy (Unknown, Verified 05/13/22 12:40) (units unknown) (unknown) (unknown) (no date) (unknown) (unknown) have occurred. If there are any questions, please contact the Medical Records (units unknown) (unknown) (unknown) (no date) (unknown) (unknown) it removed. (units unknown) (unknown) (unknown) (no date) (unknown) (unknown) marital status : unmarried,single (units unknown) (unknown) (unknown) (no date) (unknown) (unknown) may occur. Occ asional wrong-word or 'sound-alike' substitutions may have (units unknown) (unknown) (unknown) (no date) (unknown) (unknown) nevus vs skin tag (u nits unknown) (unknown) (unknown) (no date) (unknown) (unknown) occurred due t o the inherent limitations of voice recognition software. Please (units unknown) (unknown) (unknown) (no date) (unknown) (unknown) read the note carefully and recognize, using context, where these substitutions (units unknown) (unknown) (unknown) (no date) (unknown) (unknown) recommendation s if necessary (units unknown) (unknown) (unknown) (no date) (unknown) (unknown) sentences (units unknown) (unknown) (unknown) (no date) (unknown) (unknown) sertraline (Zo loft) 50 mg PO DAILY 90 tabs 3RF (units unknown) (unknown) (unknown) (no date) (unknown) (unknown) sertraline 50 mg tablet (Zoloft) 50 mg PO DAILY #90 tabs 09/16/22 [Rx Confirmed (units unknown) (unknown) (unknown) (no date) (unknown) (unknown) software. 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 (units unknown) (unknown) (unknown) (no date) (unknown) (unknown) spironolactone 25 mg PO DAILY 90 tabs 1RF L68.0 - Hirsutism, L70.9 - Acne, (units unknown) (unknown) (unknown) (no date) (unknown) (unknown) spironolactone 25 mg tablet 25 mg PO DAILY #90 tabs 09/16/22 [Rx Confirmed (units unknown) (unknown) (unknown) (no date) (unknown) (unknown) substance use type: does not use (units unknown) (unknown) (unknown) (no date) (unknown) (unknown) unspecified (units unknown) (unknown) (unknown) (no date) (unknown) (unknown) up and stand w ithout a problem (units unknown) (unknown) (unknown) (no date) (unknown) (unknown) way when she c ombs or brushes her hair. First noticed it (units unknown) (unknown) (unknown) (no date) (unknown) (unknown) with cool clot h for about 10 minutes. She was then able to get (units unknown) (unknown) Result panel 7 (unknown) (no date) (unknown) (unknown) (no value) (units unknown) (unknown) (unknown) (no date) (unknown) (unknown) 10/16/22 (units unknown) (unknown) (unknown) (no date) (unknown) (unknown) 41 weeks gesta tion of (units unknown) (unknown) (unknown) (no date) (unknown) (unknown) 9 (units unknown) (unknown) (unknown) (no date) (unknown) (unknown) Accompanied by : Self / Same As Patient (units unknown) (unknown) (unknown) (no date) (unknown) (unknown) Acne (2014) (units unknown) (unknown) (unknown) (no date) (unknown) (unknown) Age/Sex: 27 / F Date of Service: (units unknown) (unknown) (unknown) (no date) (unknown) (unknown) Allergies (units unknown) (unknown) (unknown) (no date) (unknown) (unknown) [facility] (units unknown) (unknown) (unknown) (no date) (unknown) (unknown) [place] [address] (units unknown) (unknown) (unknown) (no date) (unknown) (unknown) Anesthesia (units unknown) (unknown) (unknown) (no date) (unknown) (unknown) Anxiety (2013) (unit s unknown) (unknown) (unknown) (no date) (unknown) (unknown) Attending Dr: Amanda Painter P.A-C (units unknown) (unknown) (unknown) (no date) (unknown) (unknown) Cancer (units unknown) (unknown) (unknown) (no date) (unknown) (unknown) Constipation (units unknown) (unknown) (unknown) (no date) (unknown) (unknown) : 3 Acct:[id number] (units unknown) (unknown) (unknown) (no date) (unknown) (unknown) Dept at [phone]. (units unknown) (unknown) (unknown) (no date) (unknown) (unknown) Details: (units unknown) (unknown) (unknown) (no date) (unknown) (unknown) Documented By: Amanda Painter P.A-C 10/16/22 145 (units unknown) (unknown) (unknown) (no date) (unknown) (unknown) Draft (units unknown) (unknown) (unknown) (no date) (unknown) (unknown) Eczema (-1996) (unit s unknown) (unknown) (unknown) (no date) (unknown) (unknown) FACIAL SWELLING (uni ts unknown) (unknown) (unknown) (no date) (unknown) (unknown) Facial swelling (uni ts unknown) (unknown) (unknown) (no date) (unknown) (unknown) Family History (units unknown) (unknown) (unknown) (no date) (unknown) (unknown) Family Practic e Office Visit (units unknown) (unknown) (unknown) (no date) (unknown) (unknown) Father Age: 51 Hypertension (units unknown) (unknown) (unknown) (no date) (unknown) (unknown) Grandfather Ag e: 81 Diabetes mellitus (units unknown) (unknown) (unknown) (no date) (unknown) (unknown) Grandfather No problems noted. (units unknown) (unknown) (unknown) (no date) (unknown) (unknown) Grandmother Ag e: 77 Bladder cancer (units unknown) (unknown) (unknown) (no date) (unknown) (unknown) Grandmother Ag e: 79 Diabetes mellitus (units unknown) (unknown) (unknown) (no date) (unknown) (unknown) HPI (units unknown) (unknown) (unknown) (no date) (unknown) (unknown) Health Managem ent reviewed with patient: No (units unknown) (unknown) (unknown) (no date) (unknown) (unknown) Health Management (u nits unknown) (unknown) (unknown) (no date) (unknown) (unknown) High cholesterol (un its unknown) (unknown) (unknown) (no date) (unknown) (unknown) History of tonsillectomy (2002) (units unknown) (unknown) (unknown) (no date) (unknown) (unknown) Hypertension (units unknown) (unknown) (unknown) (no date) (unknown) (unknown) Intake perform ed by: Amanda Painter M (units unknown) (unknown) (unknown) (no date) (unknown) (unknown) Intake (units unknown) (unknown) (unknown) (no date) (unknown) (unknown) Intake- Clincial Sta ff (units unknown) (unknown) (unknown) (no date) (unknown) (unknown) LPS - August 2021 (un its unknown) (unknown) (unknown) (no date) (unknown) (unknown) Loc: [facility] (units unknown) (unknown) (unknown) (no date) (unknown) (unknown) MR#: [id number] (uni ts unknown) (unknown) (unknown) (no date) (unknown) (unknown) Medical Histor y (units unknown) (unknown) (unknown) (no date) (unknown) (unknown) Mental health proble m (units unknown) (unknown) (unknown) (no date) (unknown) (unknown) Migraines (2015) (un its unknown) (unknown) (unknown) (no date) (unknown) (unknown) Mother Age: 51 Diabetes mellitus (units unknown) (unknown) (unknown) (no date) (unknown) (unknown) PCOS (polycyst ic ovarian syndrome) (units unknown) (unknown) (unknown) (no date) (unknown) (unknown) PCP: Dr. Cook (unit s unknown) (unknown) (unknown) (no date) (unknown) (unknown) PFSH (units unknown) (unknown) (unknown) (no date) (unknown) (unknown) Painful menstr ual periods (2015) (units unknown) (unknown) (unknown) (no date) (unknown) (unknown) Patient: Heladio Ophelia Juan (units unknown) (unknown) (unknown) (no date) (unknown) (unknown) Penicillins [PENICILLINS] Allergy (Unknown, Verified 05/13/22 12:40) (units unknown) (unknown) (unknown) (no date) (unknown) (unknown) Psoriasis (-1996) (u nits unknown) (unknown) (unknown) (no date) (unknown) (unknown) Reason For Visit (un its unknown) (unknown) (unknown) (no date) (unknown) (unknown) Signed By: (units unknown) (unknown) (unknown) (no date) (unknown) (unknown) Skin nodule (units unknown) (unknown) (unknown) (no date) (unknown) (unknown) Skin tag (units unknown) (unknown) (unknown) (no date) (unknown) (unknown) Smoking Status : Current every day smoker (units unknown) (unknown) (unknown) (no date) (unknown) (unknown) Social History (unit s unknown) (unknown) (unknown) (no date) (unknown) (unknown) Stroke (units unknown) (unknown) (unknown) (no date) (unknown) (unknown) Surgical Histo ry (units unknown) (unknown) (unknown) (no date) (unknown) (unknown) This note may have been all or partially generated using voice recognition (units unknown) (unknown) (unknown) (no date) (unknown) (unknown) Tobacco + Subs tance Use (units unknown) (unknown) (unknown) (no date) (unknown) (unknown) Tobacco Status (unit s unknown) (unknown) (unknown) (no date) (unknown) (unknown) Vaginal delivery (un its unknown) (unknown) (unknown) (no date) (unknown) (unknown) Visit Reasons: pelvic pain, menstrual pain 05 (units unknown) (unknown) (unknown) (no date) (unknown) (unknown) alcohol intake : current (units unknown) (unknown) (unknown) (no date) (unknown) (unknown) clindamycin [CLINDAMYCIN] Allergy (Unknown, Verified 05/13/22 12:40) (units unknown) (unknown) (unknown) (no date) (unknown) (unknown) have occurred. If there are any questions, please contact the Medical Records (units unknown) (unknown) (unknown) (no date) (unknown) (unknown) marital status : unmarried,single (units unknown) (unknown) (unknown) (no date) (unknown) (unknown) may occur. Occ asional wrong-word or 'sound-alike' substitutions may have (units unknown) (unknown) (unknown) (no date) (unknown) (unknown) occurred due t o the inherent limitations of voice recognition software. Please (units unknown) (unknown) (unknown) (no date) (unknown) (unknown) read the note carefully and recognize, using context, where these substitutions (units unknown) (unknown) (unknown) (no date) (unknown) (unknown) software. 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 (units unknown) (unknown) (unknown) (no date) (unknown) (unknown) substance use type: does not use (units unknown) (unknown) Result panel 8 (unknown) (no date) (unknown) (unknown) (no value) (units unknown) (unknown) (unknown) (no date) (unknown) (unknown) 10/16/22 (units unknown) (unknown) (unknown) (no date) (unknown) (unknown) 10/16/22] (units unknown) (unknown) (unknown) (no date) (unknown) (unknown) 41 weeks gesta tion of (units unknown) (unknown) (unknown) (no date) (unknown) (unknown) 9 (units unknown) (unknown) (unknown) (no date) (unknown) (unknown) Accompanied by : Self / Same As Patient (units unknown) (unknown) (unknown) (no date) (unknown) (unknown) Acne (2014) (units unknown) (unknown) (unknown) (no date) (unknown) (unknown) Age/Sex: 27 / F Date of Service: (units unknown) (unknown) (unknown) (no date) (unknown) (unknown) Allergies (units unknown) (unknown) (unknown) (no date) (unknown) (unknown) [facility] (units unknown) (unknown) (unknown) (no date) (unknown) (unknown) [place] [address] (units unknown) (unknown) (unknown) (no date) (unknown) (unknown) Anesthesia (units unknown) (unknown) (unknown) (no date) (unknown) (unknown) Anxiety (2013) (unit s unknown) (unknown) (unknown) (no date) (unknown) (unknown) Attending Dr: Amanda Painter P.A-C (units unknown) (unknown) (unknown) (no date) (unknown) (unknown) Cancer (units unknown) (unknown) (unknown) (no date) (unknown) (unknown) Chief Complaint (uni ts unknown) (unknown) (unknown) (no date) (unknown) (unknown) Chief Complain t: Pain during mid menses (units unknown) (unknown) (unknown) (no date) (unknown) (unknown) Constipation (units unknown) (unknown) (unknown) (no date) (unknown) (unknown) : 3 Acct:[id number] (units unknown) (unknown) (unknown) (no date) (unknown) (unknown) Dept at [phone]. (units unknown) (unknown) (unknown) (no date) (unknown) (unknown) Details: (units unknown) (unknown) (unknown) (no date) (unknown) (unknown) Documented By: Amanda Painter P.A-C 10/16/22 145 (units unknown) (unknown) (unknown) (no date) (unknown) (unknown) Draft (units unknown) (unknown) (unknown) (no date) (unknown) (unknown) Eczema (-1996) (unit s unknown) (unknown) (unknown) (no date) (unknown) (unknown) FACIAL SWELLING (uni ts unknown) (unknown) (unknown) (no date) (unknown) (unknown) Facial swelling (uni ts unknown) (unknown) (unknown) (no date) (unknown) (unknown) Family History (units unknown) (unknown) (unknown) (no date) (unknown) (unknown) Family Practic e Office Visit (units unknown) (unknown) (unknown) (no date) (unknown) (unknown) Father Age: 51 Hypertension (units unknown) (unknown) (unknown) (no date) (unknown) (unknown) Grandfather Ag e: 81 Diabetes mellitus (units unknown) (unknown) (unknown) (no date) (unknown) (unknown) Grandfather No problems noted. (units unknown) (unknown) (unknown) (no date) (unknown) (unknown) Grandmother Ag e: 77 Bladder cancer (units unknown) (unknown) (unknown) (no date) (unknown) (unknown) Grandmother Ag e: 79 Diabetes mellitus (units unknown) (unknown) (unknown) (no date) (unknown) (unknown) HPI (units unknown) (unknown) (unknown) (no date) (unknown) (unknown) Has not been s exually active 'for a long time' (units unknown) (unknown) (unknown) (no date) (unknown) (unknown) Health Managem ent reviewed with patient: No (units unknown) (unknown) (unknown) (no date) (unknown) (unknown) Health Management (u nits unknown) (unknown) (unknown) (no date) (unknown) (unknown) High cholesterol (un its unknown) (unknown) (unknown) (no date) (unknown) (unknown) History of tonsillectomy (2002) (units unknown) (unknown) (unknown) (no date) (unknown) (unknown) Hypertension (units unknown) (unknown) (unknown) (no date) (unknown) (unknown) Intake perform ed by: Amanda Painter (units unknown) (unknown) (unknown) (no date) (unknown) (unknown) Intake (units unknown) (unknown) (unknown) (no date) (unknown) (unknown) Intake- Clincial Sta ff (units unknown) (unknown) (unknown) (no date) (unknown) (unknown) LPS - August 2021 (un its unknown) (unknown) (unknown) (no date) (unknown) (unknown) Loc: [facility] (units unknown) (unknown) (unknown) (no date) (unknown) (unknown) MR#: [id number] (uni ts unknown) (unknown) (unknown) (no date) (unknown) (unknown) Medical Histor y (units unknown) (unknown) (unknown) (no date) (unknown) (unknown) Medications (units unknown) (unknown) (unknown) (no date) (unknown) (unknown) Mental health proble m (units unknown) (unknown) (unknown) (no date) (unknown) (unknown) Migraines (2016) (un its unknown) (unknown) (unknown) (no date) (unknown) (unknown) Mother Age: 51 Diabetes mellitus (units unknown) (unknown) (unknown) (no date) (unknown) (unknown) No new sexual partners. (units unknown) (unknown) (unknown) (no date) (unknown) (unknown) Normal urinati on. Menses is regular. (units unknown) (unknown) (unknown) (no date) (unknown) (unknown) PCOS (polycyst ic ovarian syndrome) (units unknown) (unknown) (unknown) (no date) (unknown) (unknown) PCP: Dr. Cook (unit s unknown) (unknown) (unknown) (no date) (unknown) (unknown) PFSH (units unknown) (unknown) (unknown) (no date) (unknown) (unknown) Painful menstr ual periods (2016) (units unknown) (unknown) (unknown) (no date) (unknown) (unknown) Patient states that 2nd-4th day of menses will develop (units unknown) (unknown) (unknown) (no date) (unknown) (unknown) Patient: Ophelia Horne (units unknown) (unknown) (unknown) (no date) (unknown) (unknown) Penicillins [PENICILLINS] Allergy (Unknown, Verified 05/13/22 12:40) (units unknown) (unknown) (unknown) (no date) (unknown) (unknown) Present for e last 4 cycles. (units unknown) (unknown) (unknown) (no date) (unknown) (unknown) Psoriasis (-1996) (u nits unknown) (unknown) (unknown) (no date) (unknown) (unknown) Reason For Visit (un its unknown) (unknown) (unknown) (no date) (unknown) (unknown) Signed By: (units unknown) (unknown) (unknown) (no date) (unknown) (unknown) Skin nodule (units unknown) (unknown) (unknown) (no date) (unknown) (unknown) Skin tag (units unknown) (unknown) (unknown) (no date) (unknown) (unknown) Smoking Status : Current every day smoker (units unknown) (unknown) (unknown) (no date) (unknown) (unknown) Social History (unit s unknown) (unknown) (unknown) (no date) (unknown) (unknown) Stroke (units unknown) (unknown) (unknown) (no date) (unknown) (unknown) Surgical Histo ry (units unknown) (unknown) (unknown) (no date) (unknown) (unknown) This note may have been all or partially generated using voice recognition (units unknown) (unknown) (unknown) (no date) (unknown) (unknown) Tobacco + Subs tance Use (units unknown) (unknown) (unknown) (no date) (unknown) (unknown) Tobacco Status (unit s unknown) (unknown) (unknown) (no date) (unknown) (unknown) Vaginal delivery (un its unknown) (unknown) (unknown) (no date) (unknown) (unknown) Visit Reasons: pelvic pain, menstrual pain 05 (units unknown) (unknown) (unknown) (no date) (unknown) (unknown) a severe inter mittent pulsating sharp pain in her low (units unknown) (unknown) (unknown) (no date) (unknown) (unknown) alcohol intake : current (units unknown) (unknown) (unknown) (no date) (unknown) (unknown) bleeding. No discharge. No nausea or vomiting. (units unknown) (unknown) (unknown) (no date) (unknown) (unknown) clindamycin [CLINDAMYCIN] Allergy (Unknown, Verified 05/13/22 12:40) (units unknown) (unknown) (unknown) (no date) (unknown) (unknown) have occurred. If there are any questions, please contact the Medical Records (units unknown) (unknown) (unknown) (no date) (unknown) (unknown) marital status : unmarried,single (units unknown) (unknown) (unknown) (no date) (unknown) (unknown) may occur. Occ asional wrong-word or 'sound-alike' substitutions may have (units unknown) (unknown) (unknown) (no date) (unknown) (unknown) occurred due t o the inherent limitations of voice recognition software. Please (units unknown) (unknown) (unknown) (no date) (unknown) (unknown) pelvic area, a lso feels it in her back. No increased (units unknown) (unknown) (unknown) (no date) (unknown) (unknown) read the note carefully and recognize, using context, where these substitutions (units unknown) (unknown) (unknown) (no date) (unknown) (unknown) sertraline 50 mg tablet (Zoloft) 50 mg PO DAILY #90 tabs 09/16/22 [Rx Confirmed (units unknown) (unknown) (unknown) (no date) (unknown) (unknown) software. 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 (units unknown) (unknown) (unknown) (no date) (unknown) (unknown) spironolactone 25 mg tablet 25 mg PO DAILY #90 tabs 09/16/22 [Rx Confirmed (units unknown) (unknown) (unknown) (no date) (unknown) (unknown) substance use type: does not use (units unknown) (unknown) Result panel 9 (unknown) (no date) (unknown) (unknown) (no value) (units unknown) (unknown) (unknown) (no date) (unknown) (unknown) 10/16/22 (units unknown) (unknown) (unknown) (no date) (unknown) (unknown) 10/16/22] (units unknown) (unknown) (unknown) (no date) (unknown) (unknown) 41 weeks gesta tion of (units unknown) (unknown) (unknown) (no date) (unknown) (unknown) 9 (units unknown) (unknown) (unknown) (no date) (unknown) (unknown) Accompanied by : Self / Same As Patient (units unknown) (unknown) (unknown) (no date) (unknown) (unknown) Acne (2015) (units unknown) (unknown) (unknown) (no date) (unknown) (unknown) Age/Sex: 27 / F Date of Service: (units unknown) (unknown) (unknown) (no date) (unknown) (unknown) Allergies (units unknown) (unknown) (unknown) (no date) (unknown) (unknown) [facility] (units unknown) (unknown) (unknown) (no date) (unknown) (unknown) [place] [id number] (units unknown) (unknown) (unknown) (no date) (unknown) (unknown) Anesthesia (units unknown) (unknown) (unknown) (no date) (unknown) (unknown) Anxiety (2013) (unit s unknown) (unknown) (unknown) (no date) (unknown) (unknown) Attending Dr: Amanda Painter P.A-C (units unknown) (unknown) (unknown) (no date) (unknown) (unknown) Cancer (units unknown) (unknown) (unknown) (no date) (unknown) (unknown) Chief Complaint (uni ts unknown) (unknown) (unknown) (no date) (unknown) (unknown) Chief Complain t: Pain during mid menses (units unknown) (unknown) (unknown) (no date) (unknown) (unknown) Constipation (units unknown) (unknown) (unknown) (no date) (unknown) (unknown) : 3 Acct:[id number] (units unknown) (unknown) (unknown) (no date) (unknown) (unknown) Dept at [phone]. (units unknown) (unknown) (unknown) (no date) (unknown) (unknown) Details: (units unknown) (unknown) (unknown) (no date) (unknown) (unknown) Documented By: Amanda Painter P.A-C 10/16/22 145 (units unknown) (unknown) (unknown) (no date) (unknown) (unknown) Draft (units unknown) (unknown) (unknown) (no date) (unknown) (unknown) Eczema (-1996) (unit s unknown) (unknown) (unknown) (no date) (unknown) (unknown) FACIAL SWELLING (uni ts unknown) (unknown) (unknown) (no date) (unknown) (unknown) Facial swelling (uni ts unknown) (unknown) (unknown) (no date) (unknown) (unknown) Family History (units unknown) (unknown) (unknown) (no date) (unknown) (unknown) Family Practic e Office Visit (units unknown) (unknown) (unknown) (no date) (unknown) (unknown) Father Age: 51 Hypertension (units unknown) (unknown) (unknown) (no date) (unknown) (unknown) Grandfather Ag e: 81 Diabetes mellitus (units unknown) (unknown) (unknown) (no date) (unknown) (unknown) Grandfather No problems noted. (units unknown) (unknown) (unknown) (no date) (unknown) (unknown) Grandmother Ag e: 77 Bladder cancer (units unknown) (unknown) (unknown) (no date) (unknown) (unknown) Grandmother Ag e: 79 Diabetes mellitus (units unknown) (unknown) (unknown) (no date) (unknown) (unknown) HPI (units unknown) (unknown) (unknown) (no date) (unknown) (unknown) Has not been s exually active 'for a long time' (units unknown) (unknown) (unknown) (no date) (unknown) (unknown) Health Managem ent reviewed with patient: No (units unknown) (unknown) (unknown) (no date) (unknown) (unknown) Health Management (u nits unknown) (unknown) (unknown) (no date) (unknown) (unknown) High cholesterol (un its unknown) (unknown) (unknown) (no date) (unknown) (unknown) History of tonsillectomy (2002) (units unknown) (unknown) (unknown) (no date) (unknown) (unknown) Hypertension (units unknown) (unknown) (unknown) (no date) (unknown) (unknown) Intake perform ed by: Amanda Painter (units unknown) (unknown) (unknown) (no date) (unknown) (unknown) Intake (units unknown) (unknown) (unknown) (no date) (unknown) (unknown) Intake- Clincial Sta ff (units unknown) (unknown) (unknown) (no date) (unknown) (unknown) LPS - August 2021 (un its unknown) (unknown) (unknown) (no date) (unknown) (unknown) Loc: [facility] (units unknown) (unknown) (unknown) (no date) (unknown) (unknown) MR#: [id number] (uni ts unknown) (unknown) (unknown) (no date) (unknown) (unknown) Medical Histor y (units unknown) (unknown) (unknown) (no date) (unknown) (unknown) Medications (units unknown) (unknown) (unknown) (no date) (unknown) (unknown) Mental health proble m (units unknown) (unknown) (unknown) (no date) (unknown) (unknown) Migraines (2016) (un its unknown) (unknown) (unknown) (no date) (unknown) (unknown) Mother Age: 51 Diabetes mellitus (units unknown) (unknown) (unknown) (no date) (unknown) (unknown) No increased b leeding. No discharge. No nausea or vomiting. (units unknown) (unknown) (unknown) (no date) (unknown) (unknown) No new sexual partners. (units unknown) (unknown) (unknown) (no date) (unknown) (unknown) Normal urinati on. Menses is regular. (units unknown) (unknown) (unknown) (no date) (unknown) (unknown) PCOS (polycyst ic ovarian syndrome) (units unknown) (unknown) (unknown) (no date) (unknown) (unknown) PCP: Dr. Cook (unit s unknown) (unknown) (unknown) (no date) (unknown) (unknown) PFSH (units unknown) (unknown) (unknown) (no date) (unknown) (unknown) Painful menstr ual periods (2016) (units unknown) (unknown) (unknown) (no date) (unknown) (unknown) Patient states that 2nd-4th day of menses will develop (units unknown) (unknown) (unknown) (no date) (unknown) (unknown) Patient: Ophelia Horne (units unknown) (unknown) (unknown) (no date) (unknown) (unknown) Penicillins [PENICILLINS] Allergy (Unknown, Verified 05/13/22 12:40) (units unknown) (unknown) (unknown) (no date) (unknown) (unknown) Present for last 4 cycles. (units unknown) (unknown) (unknown) (no date) (unknown) (unknown) Psoriasis (-1996) (u nits unknown) (unknown) (unknown) (no date) (unknown) (unknown) Reason For Visit (un its unknown) (unknown) (unknown) (no date) (unknown) (unknown) Signed By: (units unknown) (unknown) (unknown) (no date) (unknown) (unknown) Skin nodule (units unknown) (unknown) (unknown) (no date) (unknown) (unknown) Skin tag (units unknown) (unknown) (unknown) (no date) (unknown) (unknown) Smoking Status : Current every day smoker (units unknown) (unknown) (unknown) (no date) (unknown) (unknown) Social History (unit s unknown) (unknown) (unknown) (no date) (unknown) (unknown) Stroke (units unknown) (unknown) (unknown) (no date) (unknown) (unknown) Surgical Histo ry (units unknown) (unknown) (unknown) (no date) (unknown) (unknown) This note may have been all or partially generated using voice recognition (units unknown) (unknown) (unknown) (no date) (unknown) (unknown) Tobacco + Subs tance Use (units unknown) (unknown) (unknown) (no date) (unknown) (unknown) Tobacco Status (unit s unknown) (unknown) (unknown) (no date) (unknown) (unknown) Vaginal delivery (un its unknown) (unknown) (unknown) (no date) (unknown) (unknown) Visit Reasons: pelvic pain, menstrual pain 05 (units unknown) (unknown) (unknown) (no date) (unknown) (unknown) a severe inter mittent pulsating sharp pain in her low (units unknown) (unknown) (unknown) (no date) (unknown) (unknown) about 4-5 days. (uni ts unknown) (unknown) (unknown) (no date) (unknown) (unknown) alcohol intake : current (units unknown) (unknown) (unknown) (no date) (unknown) (unknown) clindamycin [CLINDAMYCIN] Allergy (Unknown, Verified 05/13/22 12:40) (units unknown) (unknown) (unknown) (no date) (unknown) (unknown) have occurred. If there are any questions, please contact the Medical Records (units unknown) (unknown) (unknown) (no date) (unknown) (unknown) marital status : unmarried,single (units unknown) (unknown) (unknown) (no date) (unknown) (unknown) may occur. Occ asional wrong-word or 'sound-alike' substitutions may have (units unknown) (unknown) (unknown) (no date) (unknown) (unknown) occurred due t o the inherent limitations of voice recognition software. Please (units unknown) (unknown) (unknown) (no date) (unknown) (unknown) pelvic area, a lso feels it in her back. Menses lasts (units unknown) (unknown) (unknown) (no date) (unknown) (unknown) read the note carefully and recognize, using context, where these substitutions (units unknown) (unknown) (unknown) (no date) (unknown) (unknown) sertraline 50 mg tablet (Zoloft) 50 mg PO DAILY #90 tabs 09/16/22 [Rx Confirmed (units unknown) (unknown) (unknown) (no date) (unknown) (unknown) software. 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 (units unknown) (unknown) (unknown) (no date) (unknown) (unknown) spironolactone 25 mg tablet 25 mg PO DAILY #90 tabs 09/16/22 [Rx Confirmed (units unknown) (unknown) (unknown) (no date) (unknown) (unknown) substance use type: does not use (units unknown) (unknown) Result panel 10 (unknown) (no date) (unknown) (unknown) (no value) (units unknown) (unknown) (unknown) (no date) (unknown) (unknown) (1) Pelvic pain: (un its unknown) (unknown) (unknown) (no date) (unknown) (unknown) -Follow up prn (unit s unknown) (unknown) (unknown) (no date) (unknown) (unknown) -Recommend Michelle ve 220mg 2 tabs every 12 hours on days she is having pain (units unknown) (unknown) (unknown) (no date) (unknown) (unknown) -Will notify p atient of DI results when available and of any further (units unknown) (unknown) (unknown) (no date) (unknown) (unknown) 10/16/22 1526 (units unknown) (unknown) (unknown) (no date) (unknown) (unknown) 10/16/22 (units unknown) (unknown) (unknown) (no date) (unknown) (unknown) 10/16/22] (units unknown) (unknown) (unknown) (no date) (unknown) (unknown) 15:26 (units unknown) (unknown) (unknown) (no date) (unknown) (unknown) 41 weeks gesta tion of (units unknown) (unknown) (unknown) (no date) (unknown) (unknown) 9 (units unknown) (unknown) (unknown) (no date) (unknown) (unknown) Accompanied by : Self / Same As Patient (units unknown) (unknown) (unknown) (no date) (unknown) (unknown) Acne (2014) (units unknown) (unknown) (unknown) (no date) (unknown) (unknown) Age/Sex: 27 / F Date of Service: (units unknown) (unknown) (unknown) (no date) (unknown) (unknown) Allergies (units unknown) (unknown) (unknown) (no date) (unknown) (unknown) [place] [facility] (units unknown) (unknown) (unknown) (no date) (unknown) (unknown) [place] [address] (units unknown) (unknown) (unknown) (no date) (unknown) (unknown) Anesthesia (units unknown) (unknown) (unknown) (no date) (unknown) (unknown) Anxiety (2013) (unit s unknown) (unknown) (unknown) (no date) (unknown) (unknown) Appearance: gr ossly normal (units unknown) (unknown) (unknown) (no date) (unknown) (unknown) Assessment + Plan (u nits unknown) (unknown) (unknown) (no date) (unknown) (unknown) Attending Dr: Amanda Painter P.A-C (units unknown) (unknown) (unknown) (no date) (unknown) (unknown) Auscultation: clear to auscultation bilaterally (units unknown) (unknown) (unknown) (no date) (unknown) (unknown) Auscultation: normal bowel sounds (units unknown) (unknown) (unknown) (no date) (unknown) (unknown) BP 108/68 (units unknown) (unknown) (unknown) (no date) (unknown) (unknown) Blood Pressure Location Lt brachial (units unknown) (unknown) (unknown) (no date) (unknown) (unknown) Cancer (units unknown) (unknown) (unknown) (no date) (unknown) (unknown) Cardio (units unknown) (unknown) (unknown) (no date) (unknown) (unknown) Chief Complaint (uni ts unknown) (unknown) (unknown) (no date) (unknown) (unknown) Chief Complain t: Pain during mid menses (units unknown) (unknown) (unknown) (no date) (unknown) (unknown) Const (units unknown) (unknown) (unknown) (no date) (unknown) (unknown) Constipation (units unknown) (unknown) (unknown) (no date) (unknown) (unknown) : 3 Acct:[id number] (units unknown) (unknown) (unknown) (no date) (unknown) (unknown) Denies abnorma l menses, Denies menorrhagia, Reports dysmenorrhea, Denies (units unknown) (unknown) (unknown) (no date) (unknown) (unknown) Denies fever(s) (uni ts unknown) (unknown) (unknown) (no date) (unknown) (unknown) Denies nausea (units unknown) (unknown) (unknown) (no date) (unknown) (unknown) Dept at . (units unknown) (unknown) (unknown) (no date) (unknown) (unknown) Details: (units unknown) (unknown) (unknown) (no date) (unknown) (unknown) Documented By: Amanda Painter P.A-C 10/16/22 145 (units unknown) (unknown) (unknown) (no date) (unknown) (unknown) Ears: hearing grossly normal bilaterally (units unknown) (unknown) (unknown) (no date) (unknown) (unknown) Eczema (-1996) (unit s unknown) (unknown) (unknown) (no date) (unknown) (unknown) Effort + Inspe ction: normal respiratory effort and able to speak in complete (units unknown) (unknown) (unknown) (no date) (unknown) (unknown) Exam (units unknown) (unknown) (unknown) (no date) (unknown) (unknown) Extrem (units unknown) (unknown) (unknown) (no date) (unknown) (unknown) FACIAL SWELLING (uni ts unknown) (unknown) (unknown) (no date) (unknown) (unknown) Facial swelling (uni ts unknown) (unknown) (unknown) (no date) (unknown) (unknown) Family History (units unknown) (unknown) (unknown) (no date) (unknown) (unknown) Family Practic e Office Visit (units unknown) (unknown) (unknown) (no date) (unknown) (unknown) Father Age: 51 Hypertension (units unknown) (unknown) (unknown) (no date) (unknown) (unknown) GI (units unknown) (unknown) (unknown) (no date) (unknown) (unknown) (units unknown) (unknown) (unknown) (no date) (unknown) (unknown) Gastrointestin al: Denies abdominal pain, Denies change in bowel habits and (units unknown) (unknown) (unknown) (no date) (unknown) (unknown) General: healt hy appearing, comfortable and no acute distress (units unknown) (unknown) (unknown) (no date) (unknown) (unknown) General: no edema (u nits unknown) (unknown) (unknown) (no date) (unknown) (unknown) General: other (Acne + hirsutism) (units unknown) (unknown) (unknown) (no date) (unknown) (unknown) General: patie nt oriented x3 and gait normal (units unknown) (unknown) (unknown) (no date) (unknown) (unknown) Grandfather Ag e: 81 Diabetes mellitus (units unknown) (unknown) (unknown) (no date) (unknown) (unknown) Grandfather No problems noted. (units unknown) (unknown) (unknown) (no date) (unknown) (unknown) Grandmother Ag e: 77 Bladder cancer (units unknown) (unknown) (unknown) (no date) (unknown) (unknown) Grandmother Ag e: 79 Diabetes mellitus (units unknown) (unknown) (unknown) (no date) (unknown) (unknown) HENMT (units unknown) (unknown) (unknown) (no date) (unknown) (unknown) HPI (units unknown) (unknown) (unknown) (no date) (unknown) (unknown) Has not been s exually active 'for a long time' (units unknown) (unknown) (unknown) (no date) (unknown) (unknown) Health Managem ent reviewed with patient: No (units unknown) (unknown) (unknown) (no date) (unknown) (unknown) Health Management (u nits unknown) (unknown) (unknown) (no date) (unknown) (unknown) Heart Sounds: S1 normal, S2 normal and no murmurs (units unknown) (unknown) (unknown) (no date) (unknown) (unknown) High cholesterol (un its unknown) (unknown) (unknown) (no date) (unknown) (unknown) History of tonsillectomy (2002) (units unknown) (unknown) (unknown) (no date) (unknown) (unknown) Hypertension (units unknown) (unknown) (unknown) (no date) (unknown) (unknown) Inspection: no rmal to inspection and striae (units unknown) (unknown) (unknown) (no date) (unknown) (unknown) Intake perform ed by: Amanda Painter (units unknown) (unknown) (unknown) (no date) (unknown) (unknown) Intake (units unknown) (unknown) (unknown) (no date) (unknown) (unknown) Intake- Clincial Sta ff (units unknown) (unknown) (unknown) (no date) (unknown) (unknown) LPS - August 2021 (un its unknown) (unknown) (unknown) (no date) (unknown) (unknown) Loc: [facility] (units unknown) (unknown) (unknown) (no date) (unknown) (unknown) MR#: [id number] (uni ts unknown) (unknown) (unknown) (no date) (unknown) (unknown) Medical Histor y (units unknown) (unknown) (unknown) (no date) (unknown) (unknown) Medications (units unknown) (unknown) (unknown) (no date) (unknown) (unknown) Mental Status: mental status grossly normal (units unknown) (unknown) (unknown) (no date) (unknown) (unknown) Mental health proble m (units unknown) (unknown) (unknown) (no date) (unknown) (unknown) Migraines (2016) (un its unknown) (unknown) (unknown) (no date) (unknown) (unknown) Mother Age: 51 Diabetes mellitus (units unknown) (unknown) (unknown) (no date) (unknown) (unknown) Musc (units unknown) (unknown) (unknown) (no date) (unknown) (unknown) Neuro (units unknown) (unknown) (unknown) (no date) (unknown) (unknown) No increased b leeding. No discharge. No nausea or vomiting. (units unknown) (unknown) (unknown) (no date) (unknown) (unknown) No new sexual partners. (units unknown) (unknown) (unknown) (no date) (unknown) (unknown) Normal urinati on. Menses is regular. (units unknown) (unknown) (unknown) (no date) (unknown) (unknown) Nutritional Appearance: well nourished (units unknown) (unknown) (unknown) (no date) (unknown) (unknown) Orders (units unknown) (unknown) (unknown) (no date) (unknown) (unknown) Orders: (units unknown) (unknown) (unknown) (no date) (unknown) (unknown) Orientation: o riented x3 (units unknown) (unknown) (unknown) (no date) (unknown) (unknown) Oxygen Deliver y Method room air (units unknown) (unknown) (unknown) (no date) (unknown) (unknown) PCOS (polycyst ic ovarian syndrome) (units unknown) (unknown) (unknown) (no date) (unknown) (unknown) PCP: Dr. Cook (unit s unknown) (unknown) (unknown) (no date) (unknown) (unknown) PFSH (units unknown) (unknown) (unknown) (no date) (unknown) (unknown) Painful menstr ual periods (2015) (units unknown) (unknown) (unknown) (no date) (unknown) (unknown) Palpation: sof t, no hepatosplenomegaly and tender (slightly tender RLQ ) (units unknown) (unknown) (unknown) (no date) (unknown) (unknown) Patient states that 2nd-4th day of menses will develop (units unknown) (unknown) (unknown) (no date) (unknown) (unknown) Patient: Ophelia Horne (units unknown) (unknown) (unknown) (no date) (unknown) (unknown) Penicillins [PENICILLINS] Allergy (Unknown, Verified 05/13/22 12:40) (units unknown) (unknown) (unknown) (no date) (unknown) (unknown) Plan (units unknown) (unknown) (unknown) (no date) (unknown) (unknown) Position Sitting (un its unknown) (unknown) (unknown) (no date) (unknown) (unknown) Present for th e last 4 cycles. (units unknown) (unknown) (unknown) (no date) (unknown) (unknown) Psoriasis (-1996) (u nits unknown) (unknown) (unknown) (no date) (unknown) (unknown) Psych (units unknown) (unknown) (unknown) (no date) (unknown) (unknown) Pulse 68 (units unknown) (unknown) (unknown) (no date) (unknown) (unknown) Pulse Oximetry (%) 9 8 (units unknown) (unknown) (unknown) (no date) (unknown) (unknown) Pulse Source Monitor (units unknown) (unknown) (unknown) (no date) (unknown) (unknown) ROS (units unknown) (unknown) (unknown) (no date) (unknown) (unknown) Rate: regular rate ( units unknown) (unknown) (unknown) (no date) (unknown) (unknown) Reason For Visit (un its unknown) (unknown) (unknown) (no date) (unknown) (unknown) Reports as per HPI ( units unknown) (unknown) (unknown) (no date) (unknown) (unknown) Resp (units unknown) (unknown) (unknown) (no date) (unknown) (unknown) Rhythm: regular rhyt hm (units unknown) (unknown) (unknown) (no date) (unknown) (unknown) Signed By: <Electronically signed by Amanda Painter> (units unknown) (unknown) (unknown) (no date) (unknown) (unknown) Signed (units unknown) (unknown) (unknown) (no date) (unknown) (unknown) Skin nodule (units unknown) (unknown) (unknown) (no date) (unknown) (unknown) Skin tag (units unknown) (unknown) (unknown) (no date) (unknown) (unknown) Skin (units unknown) (unknown) (unknown) (no date) (unknown) (unknown) Smoking Status : Current every day smoker (units unknown) (unknown) (unknown) (no date) (unknown) (unknown) Social History (unit s unknown) (unknown) (unknown) (no date) (unknown) (unknown) Speech and Mov ement: speech and movement normal (units unknown) (unknown) (unknown) (no date) (unknown) (unknown) Stroke (units unknown) (unknown) (unknown) (no date) (unknown) (unknown) Surgical Histo ry (units unknown) (unknown) (unknown) (no date) (unknown) (unknown) Temp 97.9 F (units unknown) (unknown) (unknown) (no date) (unknown) (unknown) This note may have been all or partially generated using voice recognition (units unknown) (unknown) (unknown) (no date) (unknown) (unknown) Tobacco + Subs tance Use (units unknown) (unknown) (unknown) (no date) (unknown) (unknown) Tobacco Status (unit s unknown) (unknown) (unknown) (no date) (unknown) (unknown) US pelvic comp lete 2 Weeks R10.2 - Pelvic and perineal pain (units unknown) (unknown) (unknown) (no date) (unknown) (unknown) Vaginal delivery (un its unknown) (unknown) (unknown) (no date) (unknown) (unknown) Visit Reasons: pelvic pain, menstrual pain 05 (units unknown) (unknown) (unknown) (no date) (unknown) (unknown) Vitals (units unknown) (unknown) (unknown) (no date) (unknown) (unknown) Weight 158 lb (units unknown) (unknown) (unknown) (no date) (unknown) (unknown) a severe inter mittent pulsating sharp pain in her low (units unknown) (unknown) (unknown) (no date) (unknown) (unknown) about 4-5 days. (uni ts unknown) (unknown) (unknown) (no date) (unknown) (unknown) alcohol intake : current (units unknown) (unknown) (unknown) (no date) (unknown) (unknown) clindamycin [CLINDAMYCIN] Allergy (Unknown, Verified 05/13/22 12:40) (units unknown) (unknown) (unknown) (no date) (unknown) (unknown) dysuria, Denie s vaginal discharge and Denies vaginal odor (units unknown) (unknown) (unknown) (no date) (unknown) (unknown) have occurred. If there are any questions, please contact the Medical Records (units unknown) (unknown) (unknown) (no date) (unknown) (unknown) marital status : unmarried,single (units unknown) (unknown) (unknown) (no date) (unknown) (unknown) may occur. Occ asional wrong-word or 'sound-alike' substitutions may have (units unknown) (unknown) (unknown) (no date) (unknown) (unknown) occurred due t o the inherent limitations of voice recognition software. Please (units unknown) (unknown) (unknown) (no date) (unknown) (unknown) pelvic area, a lso feels it in her back. Menses lasts (units unknown) (unknown) (unknown) (no date) (unknown) (unknown) read the note carefully and recognize, using context, where these substitutions (units unknown) (unknown) (unknown) (no date) (unknown) (unknown) recommendation s if necessary (units unknown) (unknown) (unknown) (no date) (unknown) (unknown) sentences (units unknown) (unknown) (unknown) (no date) (unknown) (unknown) sertraline 50 mg tablet (Zoloft) 50 mg PO DAILY #90 tabs 09/16/22 [Rx Confirmed (units unknown) (unknown) (unknown) (no date) (unknown) (unknown) software. 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 (units unknown) (unknown) (unknown) (no date) (unknown) (unknown) spironolactone 25 mg tablet 25 mg PO DAILY #90 tabs 09/16/22 [Rx Confirmed (units unknown) (unknown) (unknown) (no date) (unknown) (unknown) substance use type: does not use (units unknown) (unknown) Result panel 11 (unknown) (no date) (unknown) (unknown) (no value) (units unknown) (unknown) (unknown) (no date) (unknown) (unknown) 11/10/22 (units unknown) (unknown) (unknown) (no date) (unknown) (unknown) 1. Normal pelv ic ultrasound exam. A cause for pelvic pain is not identified. (units unknown) (unknown) (unknown) (no date) (unknown) (unknown) [address] [place] [address] (un its unknown) (unknown) (unknown) (no date) (unknown) (unknown) 19:23. (units unknown) (unknown) (unknown) (no date) (unknown) (unknown) 19:36. US, PEL DALE COMPLETE, 12/17/2016, 8:18. US, PELVIC COMPLETE, 02/26/2017, (units unknown) (unknown) (unknown) (no date) (unknown) (unknown) 01/18/2017, (units unknown) (unknown) (unknown) (no date) (unknown) (unknown) Accession Numb er: [id number] (units unknown) (unknown) (unknown) (no date) (unknown) (unknown) Additional end ovaginal scanning was necessary due to incomplete visualization of (units unknown) (unknown) (unknown) (no date) (unknown) (unknown) Age/Sex: 27 / F Date of Service: (units unknown) (unknown) (unknown) (no date) (unknown) (unknown) [place] [address] (units unknown) (unknown) (unknown) (no date) (unknown) (unknown) Approved by: Fernando Silverman M.D. on 11/10/2022 at 15:30 (units unknown) (unknown) (unknown) (no date) (unknown) (unknown) COMPARISON: US , PELVIC COMPLETE, 01/23/2017, 9:02. US, PELVIC COMPLETE, (units unknown) (unknown) (unknown) (no date) (unknown) (unknown) : 3 Acct:[id number] (units unknown) (unknown) (unknown) (no date) (unknown) (unknown) Dictated by: Fernando Silverman M.D. on 11/10/2022 at 15:21 (units unknown) (unknown) (unknown) (no date) (unknown) (unknown) FINDINGS: (units unknown) (unknown) (unknown) (no date) (unknown) (unknown) IMPRESSION: (units unknown) (unknown) (unknown) (no date) (unknown) (unknown) INDICATIONS: P elvic pain hx of PCOS IUD removed 11/13 (units unknown) (unknown) (unknown) (no date) (unknown) (unknown) [facility] (uni ts unknown) (unknown) (unknown) (no date) (unknown) (unknown) Jean-Paul sanz, [place], US PELVIC COMPLETE, 08/06/2020, 13:51. (units unknown) (unknown) (unknown) (no date) (unknown) (unknown) Loc: [place] (units unknown) (unknown) (unknown) (no date) (unknown) (unknown) MR#: [id number] (uni ts unknown) (unknown) (unknown) (no date) (unknown) (unknown) Ordering Provi miranda: Amanda Painter P.A-C (units unknown) (unknown) (unknown) (no date) (unknown) (unknown) Other: No path ologic free abdominal or pelvic fluid. (units unknown) (unknown) (unknown) (no date) (unknown) (unknown) Ovaries: The r ight ovary measures 3.6 x 2.5 x 1.8 cm, with a calculated ovarian (units unknown) (unknown) (unknown) (no date) (unknown) (unknown) PROCEDURE: US PELVIC COMPLETE (units unknown) (unknown) (unknown) (no date) (unknown) (unknown) Patient: Heladio GeorgeOphelia Adi (units unknown) (unknown) (unknown) (no date) (unknown) (unknown) Procedure: US pelvic complete (units unknown) (unknown) (unknown) (no date) (unknown) (unknown) Real-time scan aruna was performed of the pelvic organs, with image documentation. (units unknown) (unknown) (unknown) (no date) (unknown) (unknown) Signed (units unknown) (unknown) (unknown) (no date) (unknown) (unknown) TECHNIQUE: (units unknown) (unknown) (unknown) (no date) (unknown) (unknown) To assist (units unknown) (unknown) (unknown) (no date) (unknown) (unknown) Ultrasound Report (u nits unknown) (unknown) (unknown) (no date) (unknown) (unknown) Uterus: Uterus is retroverted and normal in size at 7.3 x 5.1 x 3.0 cm. The (units unknown) (unknown) (unknown) (no date) (unknown) (unknown) We strive to p roduce accurate, complete, and clear reports of imaging services. (units unknown) (unknown) (unknown) (no date) (unknown) (unknown) adnexal and endometrial structures by transabdominal scanning. (units unknown) (unknown) (unknown) (no date) (unknown) (unknown) and voice godfrey gnition software. Therefore, it may contain abnormal punctuation, (units unknown) (unknown) (unknown) (no date) (unknown) (unknown) be seen in eac h ovary. No adnexal masses are seen. On Doppler ultrasound, (units unknown) (unknown) (unknown) (no date) (unknown) (unknown) follicles can (units unknown) (unknown) (unknown) (no date) (unknown) (unknown) inaccuracies. (units unknown) (unknown) (unknown) (no date) (unknown) (unknown) insertions and /or omissions. Occasional wrong-word or sound-alike substitutions (units unknown) (unknown) (unknown) (no date) (unknown) (unknown) is homogeneous . The endometrium measures 6.5 mm combined thickness. (units unknown) (unknown) (unknown) (no date) (unknown) (unknown) may (units unknown) (unknown) (unknown) (no date) (unknown) (unknown) myometrium (units unknown) (unknown) (unknown) (no date) (unknown) (unknown) normal vascula rity to both ovaries. (units unknown) (unknown) (unknown) (no date) (unknown) (unknown) occur. Though we review the report and make efforts to correct it, we do (units unknown) (unknown) (unknown) (no date) (unknown) (unknown) of 8.6 cc. The left ovary measures 3.5 x 2.6 x 1.8 cm, with a calculated ovarian (units unknown) (unknown) (unknown) (no date) (unknown) (unknown) of 8.6 cc. The ovaries have a normal sonographic appearance. Less than 12 (units unknown) (unknown) (unknown) (no date) (unknown) (unknown) recommend that (unit s unknown) (unknown) (unknown) (no date) (unknown) (unknown) templates (units unknown) (unknown) (unknown) (no date) (unknown) (unknown) the report be read carefully in proper context to recognize any text (units unknown) (unknown) (unknown) (no date) (unknown) (unknown) the (units unknown) (unknown) (unknown) (no date) (unknown) (unknown) there is (units unknown) (unknown) (unknown) (no date) (unknown) (unknown) us in [facility] patient care, this report was composed using standard report (units unknown) (unknown) (unknown) (no date) (unknown) (unknown) volume (units unknown) (unknown) Social History date description facility 2022-09-16 00:00 Smokes tobacco daily (finding) [facility] 2022-10-16 00:00 Smokes tobacco daily (finding) [facility] Vital Signs date measurement value units 2022-09-16 00:00 BP_diastolic 70 mmHg 2022-09-16 00:00 BP_systolic 108 mmHg 2022-09-16 00:00 heart_rate 74 /min 2022-09-16 00:00 o2_saturation 99 % 2022-09-16 00:00 temperature_metric 36.44 C 2022-09-16 00:00 temperature_standard 97.6 F 2022-09-16 00:00 weight_metric 72.34 kg 2022-09-16 00:00 weight_standard 159.48 lb 2022-10-16 00:00 BP_diastolic 68 mmHg 2022-10-16 00:00 BP_systolic 108 mmHg 2022-10-16 00:00 heart_rate 68 /min 2022-10-16 00:00 o2_saturation 98 % 2022-10-16 00:00 temperature_metric 36.61 C 2022-10-16 00:00 temperature_standard 97.9 F 2022-10-16 00:00 weight_metric 71.66 kg 2022-10-16 00:00 weight_standard 157.98 lb
[2022-11-21 18:59] LABS: BILIRUBIN,URINE NEGATIVE (NEGATIVE); CLARITY,URINE CLEAR (CLEAR); GLUCOSE, URINE (UA) NEGATIVE (NEGATIVE); HCG UR QUAL NEGATIVE; KETONES,URINE (UA) NEGATIVE (NEGATIVE); LEUKOCYTE ESTERASE, URINE NEGATIVE (NEGATIVE); NITRITE,URINE NEGATIVE (NEGATIVE); OCCULT BLOOD,URINE NEGATIVE (NEGATIVE); PH,URINE 8.5 PH (5.0-7.5); PROTEIN,URINE 30 mg/dL (NEGATIVE); UROBILINOGEN,URINE 2 E.U./dL (NORMAL)
[2022-11-21 19:11] LABS: BACTERIA,URINE Rare /HPF (None Seen); MUCUS,URINE Marked Strands; RBC,URINE 0-5 /HPF (0-5); SQUAMOUS EPITHELIAL CELL,UR MANY Squamous (<= Few); WBC,URINE 0-3 /HPF (0-5)
[2022-11-21 19:28] LABS: CALCIUM 8.5 mg/dL (8.5-10.3); CREATININE 0.7 mg/dL (0.4-1.0); POTASSIUM 3.5 mmol/L (3.5-5.0)
[2022-11-21 19:54] VITALS: BP 95/67
== END 2022-11-21 19:45 | disposition home or self-care (01) ==
LOC: EDUNIT# → ED 17:55
DX: R55 Syncope and collapse (principal)
CPT/HCPCS: 36415; 80048; 81001; 81003; 81025; 85025; 87086; 93005; 99282; 99283